=== PATIENT | female | born 1955 | race Caucasian/White ===

== ENCOUNTER 2023-06-14 10:37 | Outpatient (OUT) | payer MEDICARE, SELFPAY ==
--- NOTE | 2023-06-14 10:43 | MM_ITS ---
Patient Name: YAMILET GALAVIZ MR#: [id number] : 1955 Exam Date: 06/14/2023 Ordering Doctor: DR MARTINEZ FISHER RADIOLOGY REPORT PROCEDURE: MM TOMOSYNTHESIS SCREENING BI COMPARISON: MG MAMM SCREEN 3D ROBERT CAD, 04/21/2022. MG MAMM SCREEN 3D ROBERT CAD, 04/20/2021. INDICATIONS: screening Calculator Name NCI Breast Cancer Risk Assessment Tool 5 Year Breast Cancer Risk 3.20% Lifetime Breast Cancer Risk 10.80% Personal Breast Cancer No Personal Ovarian Cancer No Treatments None Family Cancers Mother with breast cancer at age 56; Father with bladder cancer at age 70. LOCATION: [facility] BREAST COMPOSITION: Scattered areas fibroglandular density. FINDINGS: DIAGNOSTIC CATEGORY 2--BENIGN FINDING. NO CHANGE FROM COMPARISON. Scattered benign-appearing nodules are present. Scattered benign-appearing calcifications are present. Scattered benign-appearing lymph nodes are present. RIGHT BREAST: No significant suspicious finding. LEFT BREAST: No significant suspicious finding. RECOMMENDATIONS: ROUTINE MAMMOGRAM AND CLINICAL EVALUATION IN 12 MONTHS. PLEASE NOTE: A NORMAL MAMMOGRAM DOES NOT EXCLUDE THE POSSIBILITY OF BREAST CANCER. A CLINICALLY SUSPICIOUS PALPABLE LUMP SHOULD BE BIOPSIED. Dictated by: Geovanny Fernandez MD on 06/14/2023 at 12:46 Approved by: Geovanny Fernandez MD on 06/14/2023 at 12:47
== END 2023-06-14 10:38 | disposition home or self-care (01) ==
LOC: MAMMO 10:37
PROVIDERS: PCP Nurse Practitioner Family; Visit Provider Nurse Practitioner Family
DX: Z12.31 Encounter for screening mammogram for malignant neoplasm of breast (principal); Z80.3 Family history of malignant neoplasm of breast; Z80.52 Family history of malignant neoplasm of bladder
CPT/HCPCS: 77063; 77067

== ENCOUNTER 2023-08-19 09:18 | Outpatient (OUT) | payer MEDICARE, SELFPAY ==
--- NOTE | 2023-08-19 09:22 | CT_ITS ---
[address] [address] Patient Name: YAMILET GALAVIZ MRN: [id number] date: 1955 Sex: F Assigned Patient Location: CT Current Patient Location: Accession/Order Number: [id number] Exam Date: 08/19/2023 09:28 Report Date: 08/22/2023 09:20 At the request of: JOSE DANIEL Procedure: CT abdomen pelvis wo con EXAMINATION: CT abdomen pelvis wo con HISTORY: Kidney Stone COMPARISON: No relevant comparison available. TECHNIQUE: Axial, Coronal, and Sagittal images were created without IV contrast. Dose reduction techniques were achieved by using automated exposure control and/or adjustment of mA and/or kV according to patient size and/or use of iterative reconstruction technique. FINDINGS: LUNG BASES: No visible pulmonary or pleural disease. LIVER: No enlargement, atrophy, abnormal density, or significant focal lesion. BILIARY: No dilatation or calcification. PANCREAS: No lesion, fluid collection, ductal dilatation, or atrophy. SPLEEN: No enlargement or focal lesion. ADRENALS: No mass or enlargement. KIDNEYS: Nonobstructing right nephrolithiasis. No hydronephrosis BOWEL/MESENTERY: Suture line rectosigmoid colon junction. Mild colonic diverticulosis without evidence of acute diverticulitis. Multiple suture lines along the gastric lumen. Nonobstructive bowel gas pattern. Normal appendix AORTA/VASCULAR: No aortic aneurysm. Mild calcific atherosclerosis RETROPERITONEUM: No mass or adenopathy. LYMPH NODES: No adenopathy. URINARY BLADDER: No visible focal wall thickening, lesion, or calculus. PELVIC ORGANS: Hysterectomy ABDOMINAL WALL: 2 ventral hernias containing mesenteric fat without strangulation BONES: No bony lesion or fracture. OTHER: Negative. CT/CT abdomen pelvis wo con IMPRESSION: Nonobstructing right nephrolithiasis Electronically authenticated by: STEVEN HENDERSON Date: 08/22/2023 09:20
== END 2023-08-19 09:19 | disposition home or self-care (01) ==
LOC: CT 09:18
PROVIDERS: PCP Family Medicine; Visit Provider Urology
DX: N20.0 Calculus of kidney (principal)
CPT/HCPCS: 74176

== ENCOUNTER 2024-01-12 13:53 | Outpatient (RCR) | payer MEDICARE, SELFPAY | END 2024-02-28 14:25 | disposition home or self-care (01) | LOC: PT 13:53 | PROVIDERS: PCP Family Medicine; Visit Provider Orthopaedic Surgery Sports Medicine | DX: M75.122 Complete rotator cuff tear or rupture of left shoulder, not specified as traumatic (principal); M25.511 Pain in right shoulder | CPT/HCPCS: 97110; 97112; 97116; 97140; 97162 ==

== ENCOUNTER 2024-02-29 08:12 | Outpatient (RCR) | payer MEDICARE, SELFPAY | END 2024-04-27 14:29 | disposition home or self-care (01) | LOC: PT 08:12 | PROVIDERS: PCP Family Medicine; Visit Provider Orthopaedic Surgery Sports Medicine | DX: M75.122 Complete rotator cuff tear or rupture of left shoulder, not specified as traumatic (principal); M25.511 Pain in right shoulder; S43.429D Sprain of unspecified rotator cuff capsule, subsequent encounter | CPT/HCPCS: 97110; 97112; 97140 ==

== ENCOUNTER 2024-04-23 11:44 | Emergency (ER) | payer MEDICARE, SELFPAY ==
[2024-04-23 11:53] VITALS: BP 143/69; PULSE 87; TEMP 38; O2SAT 96; BMI 29.3
--- OUTSIDE RECORDS SUMMARY | 2024-04-23 12:09 | XMS_ITS | CCD ---
Author Organization [facility] Inform ion Partnership [facility] Care Team Providers Care Traveling Secretary Name Role Phone JESUS DIA Referring Unavailable YURANDAL MEDINA Primary Care Unavailable JÚNIOR, DR EDUARDO Temple Consulting Unavailable KUNS, DR VALERIE Temple Attending Unavailable KUNS, DR VALERIE Temple Admitting Unavailable KUNS, DR VALERIE Temple Primary Care Unavailable KUNS, DR VALERIE Temple Consulting Unavailable VALERIE ADLER Referring Unavailable KUNS, VALERIE RICARDO Primary Care Unavailable FURLONG, HARSHAL Primary Care Physician Frances Arias Attending Unavailable Frances Arias Admitting Unavailable Frances Arias Attending Unavailable Frances Arias Attending Unavailable Frances Arias Attending Unavailable Frances Arias Admitting Unavailable Furlong DO, Harshal G Primary Care Provider [phone] VALERIE ADLER Attending Unavailable ROMYS, VALERIE RICARDO Referring Unavailable KUNS, VALERIE RICARDO Primary Care Unavailable KUNSVALERIE Referring Unavailable FURLONG, HARSHAL G Primary Care Unavailable FURLONG, HARSHAL G Attending Unavailable FURLONG, HARSHAL G Referring Unavailable FURLONG, HARSHAL G Primary Care Unavailable FURLONG, HARSHAL G Attending Unavailable FURLONG, HARSHAL G Referring Unavailable FURLONG, HARSHAL G Primary Care Unavailable FURLONG, HARSHAL G Attending Unavailable FURLONG, HARSHAL G Referring Unavailable FURLONG, HARSHAL G Primary Care Unavailable Allergies Allergy Classification Reported Allergen(s) Allergy Type Date of Onset Reaction(s) Facility nickel (1 source) nickel Drug Allergy Eruption of skin (disorder) [facility] [place] Penicillins (antibiotic) (1 source) Penicillin; Translations: [penicillin] Drug Allergy Weal (disorder) [facility] (5 sources) Acetaminophen / oxyCODONE; Translations: [OXYCODONE-ACETAM INOPHEN] Drug Allergy 4 Nausea And Vomiting [facility] (10 sources) nickel; Translations: [NICKEL] Drug Allergy 3 Eruption of skin (disorder), Hives [facility] (7 sources) Penicillins; Translations: [PENICILLINS] Propensity to adverse reactions to drug (disorder) 2 Unknown Reaction [facility] (5 sources) Scopolamine; Translations: [SCOPOLAMINE] Drug Allergy 4 Rash [facility] (3 sources) Penicillin; Translations: [penicillin] Drug Allergy Weal (disorder) [facility] Medications Current Medications Medication Drug Class(es) Dates Sig (Normalized) Sig (Original) alendronic acid 70 mg oral tablet (1 source) Bisphosphonate Start: 04-22-2024 take 1 tablet by mouth in the morning alendronate (FOSAMAX) 70 mg tablet Take 1 tablet (70 mg total) by mouth every 7 days. In a.m. with water on empty stomach, nothing else by mouth and remain upright for 30min 12 tablet 3 04/22/2024 Active calcium carbonate 500 mg chewable tablet (1 source) Start: 11-09-2023 calcium carbonate 500 mg Chew Tab 500 mg = 1 tab(s), Chewed, BID Start Date: 11/09/23 Status: Ordered calcium carbonate 1250 mg / cholecalciferol 100 unt / vitamin k1 0.04 mg chewable tablet (3 sources) Vitamin D, Warfarin Reversal Agent, Vitamin K calcium-vitamin D3-vitamin K (CALCIUM FOR WOMEN) 500-100-40 mg-unit-mcg tablet,chewable Chew and swallow daily. Active cholecalciferol 0.125 mg oral capsule (3 sources) Vitamin D take 1 capsule by mouth in the morning cholecalciferol, vitamin D3, (VITAMIN D3) 5,000 units capsule Take 1 capsule (5,000 Units total) by mouth in the morning. Active Ciprofloxacin / Dexamethasone (1 source) Corticosteroid, Quinolone Antimicrobial Start: 11-02-2023 Ciprofloxacin-Dex amethasone Active 4 DROPS OTIC Twice daily 7.5 7 November 02, 2023 12:00am clindamycin 150 mg oral capsule (3 sources) Lincosamide Antibacterial Start: 11-30-2023 clindamycin (CLEOCIN) 150 mg capsule For Dental apt 11/30/2023 Active buoqvsgo-zapw-VT-calc ium &mins (THERAGRAN-M) 9 mg iron-400 mcg tablet (3 sources) jfxvnbvf-eaoy-WO - calcium &mins (THERAGRAN-M) 9 mg iron-400 mcg tablet Take 1 tablet by mouth in the morning. Active Multivitamin preparation (3 sources) Start: 08-03-2023 multivitamin Refill(s) 0 Start Date: 08/03/23 Status: Ordered traZODone hydrochloride 50 mg oral tablet (8 sources) Serotonin Reuptake Inhibitor Start: 07-14-2023 take 1 tablet by mouth once daily traZODone (DESYREL) 50 mg tablet Indications: Adjustment insomnia Take 1 tablet (50 mg total) by mouth nightly. 90 tablet 3 07/14/2023 Active Viactiv Soft Calcium Chews (3 sources) Start: 08-03-2023 Viactiv Soft Calcium Chews Refill(s) 0 Start Date: 08/03/23 Status: Ordered Vitamin D3 (3 sources) Start: 08-03-2023 Vitamin D3 Refills(s) 0 Start Date: 08/03/23 Status: Ordered Completed/Discontinued Medications Medication Drug Class(es) Dates Sig (Normalized) Sig (Original) brompheniramine maleate 0.4 mg/ml / dextromethorphan hydrobromide 2 mg/ml / pseudoephedrine hydrochloride 6 mg/ml oral solution (1 source) alpha-Adrenergic Agonist, Uncompetitive Z-jfeqgd-O-aspartat e Receptor Antagonist, Sigma-1 Agonist Start: 11-10-2023 End: 02-20-2024 take 10 mL by mouth four times daily as needed brompheniramine-p seudoeph-DM 2-30-10 mg/5 mL syrup Take 10 mL by mouth 4 (four) times a day as needed for allergies. 473 mL 11/10/2023 02/20/2024 Discontinued ofloxacin 3 mg/ml ophthalmic solution (2 sources) Quinolone Antimicrobial Start: 08-26-2023 End: 11-02-2023 take 1 drop(s) into the eye(s) four times daily Ofloxacin Discontinued 2 DROPS EYE-BOTH Four times daily 12 04August 26, 2023 12:00am November 02, 2023 12:37pm omeprazole 40 mg delayed release oral capsule (1 source) Proton Pump Inhibitor Start: 11-02-2023 End: 11-02-2023 take 40 mg by mouth once daily Omeprazole Discontinued 40 MG PO Daily November 02, 2023 12:00am November 02, 2023 12:45pm Problems Active Problems Problem Classification Problem Date Documented Date Episodic/Chronic Calculus of urinary tract (15 sources) Kidney stone; Translations: [Calculus of kidney] Onset: 08-03-2023 Episodic Disorders of lipid metabolism (7 sources) Mixed hyperlipidemia; Translations: [Mixed hyperlipidemia] Onset: 11-20-2021 02-20-2024 Chronic Diverticulosis and diverticulitis (3 sources) Diverticulitis; Translations: [Diverticulitis of intestine, part unspecified, without perforation or abscess without bleeding] Onset: 11-20-2021 11-20-2021 Chronic Esophageal disorders (3 sources) Gastroesophageal reflux disease; Translations: [Gastro-esophageal reflux disease without esophagitis] Onset: 06-11-2022 06-11-2022 Chronic Genitourinary symptoms and ill-defined conditions (13 sources) History of urinary tract infection; Translations: [Personal history of urinary (tract) infections] Onset: 08-03-2023 Episodic Inflammation; infection of eye (except that caused by tuberculosis or sexually transmitteddisease) (4 sources) Conjunctivitis of left eye; Translations: [Unspecified conjunctivitis] 08-26-2023 Episodic Nutritional deficiencies (8 sources) Vitamin D deficiency; Translations: [Vitamin D deficiency, unspecified] Onset: 11-28-2017 08-03-2023 Chronic Osteoarthritis (7 sources) Arthritis; Translations: [Osteoarthritis] Onset: 06-11-2022 08-03-2023 Chronic Other screening for suspected conditions (not mental disorders or infectious disease) (7 sources) Encounter for screening mammogram for malignant neoplasm of breast; Translations: [Patient encounter status] Onset: 04-21-2022 Episodic Residual codes; unclassified (3 sources) Obstructive sleep apnea syndrome; Translations: [Obstructive sleep apnea (adult) (pediatric)] Onset: 10-11-2016 11-20-2021 Chronic Residual codes; unclassified (1 source) Family history of malignant neoplasm of breast; Translations: [FAMILY HX MALIG NEOPLASM OF BREAST] Onset: 04-25-2022 Episodic Residual codes; unclassified (1 source) Family history of malignant neoplasm of bladder; Translations: [FAM HX MALIGNANT NEOPLASM BLADDER] Onset: 04-25-2022 Episodic Residual codes; unclassified (1 source) Asymptomatic menopausal state; Translations: [Asymptomatic menopausal state] Onset: 02-20-2024 Episodic Residual codes; unclassified (1 source) Menopause present; Translations: [Asymptomatic menopausal state] 04-16-2024 Episodic Unclassified (1 source) MAW Onset: 09-15-2023 Past or Other Problems Problem Classification Problem Date Documented Da te Episodic/Chronic Anxiety disorders (3 sources) Anxiety; Translations: [Anxiety disorder, unspecified] Onset: 06-11-2022 Resolved: 01-10-2023 01-10-2023 Chronic Diabetes mellitus without complication (3 sources) Impaired fasting glycemia; Translations: [Impaired fasting glucose] Onset: 11-28-2017 Resolved: 07-14-2023 07-14-2023 Episodic Essential hypertension (4 sources) Essential hypertension; Translations: [Essential (primary) hypertension] Onset: 11-20-2021 Resolved: 07-14-2023 07-14-2023 Chronic Joint disorders and dislocations; trauma-related (3 sources) Acute tear of medial meniscus of left knee; Translations: [Other tear of medial meniscus, current injury, left knee, initial encounter] Onset: 01-28-2014 Resolved: 01-10-2023 01-10-2023 Episodic Miscellaneous mental health disorders (1 source) Adjustment insomnia; Translations: [Adjustment insomnia] Onset: 07-14-2023 Episodic Mood disorders (3 sources) Depressive disorder; Translations: [Depression] Onset: 06-11-2022 Resolved: 01-10-2023 01-10-2023 Chronic Mood disorders (3 sources) Mood disorders Onset: 02-20-2024 02-20-2024 Other connective tissue disease (3 sources) Full thickness rotator cuff tear; Translations: [Complete rotator cuff tear or rupture of left shoulder, not specified as traumatic] Onset: 12-14-2023 02-20-2024 Episodic Other gastrointestinal disorders (3 sources) Bariatric surgery status; Translations: [Bariatric surgery status] Onset: 07-14-2023 Episodic Other nutritional; endocrine; and metabolic disorders (3 sources) Morbid obesity; Translations: [Morbid (severe) obesity due to excess calories] Onset: 06-11-2022 Resolved: 07-14-2023 07-14-2023 Chronic Unclassified (3 sources) Onset: 02-23-2022 02-23-2022 Viral infection (3 sources) Disease caused by 2019-nCoV; Translations: [COVID-19] Onset: 11-10-2023 11-10-2023 Episodic Results Test Name Value Interpretation Reference Range Facility DXA Skeletal system Views fo r bone densityOrdered By: Lara Mckeon on 04-16-[address] [facility] Radiology Study observation (narrative) [facility] Ambulatory Visit Summaryon 0 11-09-2023 Ambulatory Visit Summary Ambulatory Visit Summary YAMILET SHERWOOD :1955 Visit Date:11/09/2023 Ambulatory Visit Instructions Your Diagnosis Kidney stone Weak urine stream History of UTI History of Dolly-en-Y gastric bypass Tests Performed US Renal -- Results Pending -- XR Abdomen 1 View -- Results Pending -- Please visit your patient portal for your results or contact your primary care physician. Your Care Team Attending Physician - Frances Arias MD Primary Care Physician - HARSHAL NEVAREZ DO This Is Your Medications List Contact prescribing physician if questions or concerns calcium carbonate (calcium carbonate 500 mg Chew Tab) cholecalciferol (Vitamin D3) multivitamin multivitamin with minerals (Viactiv Soft Calcium Chews) trazodone (traZODONE 50 mg Tab) Procedures Performed Gastric bypass (11/28/2022), Knee (2012), Bowel (2007), Hysterectomy (1996), Colonoscopy. Discharge Vitals Weight 70.5 kg Weight 155.1 lb What to do next You Need to Schedule the Following Appointments Follow Up with Hugo WHITE, Frances Nettles, URL, URO When: Comments: 1 yr w/ MICHELLE & KUB Where: [address] [place] [address]- [phone] Medications What How Much When Instructions Unchanged calcium carbonate (calcium carbonate 500 mg Chew Tab) 1 Tablets Chewed 2 times a day Contact prescribing physician if questions or concerns Unchanged cholecalciferol (Vitamin D3) Contact prescribing physician if questions or concerns Unchanged multivitamin Contact prescribing physician if questions or concerns Unchanged multivitamin with minerals (Viactiv Soft Calcium Chews) Contact prescribing physician if questions or concerns Unchanged trazodone (traZODONE 50 mg Tab) Contact prescribing physician if questions or concerns Allergies Nickel (Rash) penicillin (Hives) Problems Ongoing - Any problem that you are currently receiving treatment for. Arthritis History of Dolly-en-Y gastric bypass History of UTI Kidney stone Ureteral stone Vitamin D deficiency Weak urine stream Patient Survey You may receive a survey via text or e-mail asking about your office visit. Please share your experience with us by completing your survey. We appreciate your feedback and thank you for choosing us for your care. Education Materials Dietary Guidelines to Help Prevent Kidney Stones Kidney stones are deposits of minerals and salts that form inside your kidneys. Your risk of developing kidney stones may be greater depending on your diet, your lifestyle, the medicines you take, and whether you have certain medical conditions. Most people can lower their risks of developing kidney stones by following these dietary guidelines. Your dietitian may give you more specific instructions depending on your overall health and the type of kidney stones you tend to develop. What are tips for following this plan? Reading food labels ? Choose foods with no salt added or low-salt labels. Limit your salt (sodium) intake to less than 1,500 mg a day. ? Choose foods with calcium for each meal and snack. Try to eat about 300 mg of calcium at each meal. Foods that contain 200?500 mg of calcium a serving include: ? 8 oz (237 mL) of milk, calcium-fortifiednon- dairy milk, and calcium-fortifiedfrui t juice. Calcium-fortified means that calcium has been added to these drinks. ? 8 oz (237 mL) of kefir, yogurt, and soy yogurt. ? 4 oz (114 g) of tofu. ? 1 oz (28 g) of cheese. ? 1 cup (150 g) of dried figs. ? 1 cup (91 g) of cooked broccoli. ? One 3 oz (85 g) can of sardines or mackerel. Most people need 1,000?1,500 mg of calcium a day. Talk to your dietitian about how much calcium is recommended for you. Shopping ? Buy plenty of fresh fruits and vegetables. Most people do not need to avoid fruits and vegetables, even if these foods contain nutrients that may contribute to kidney stones. ? When shopping for convenience foods, choose: ? Whole pieces of fruit. ? Pre-made salads with dressing on the side. ? Low-fat fruit and yogurt smoothies. ? Avoid buying frozen meals or prepared deli foods. These can be high in sodium. ? Look for foods with live cultures, such as yogurt and kefir. ? Choose high-fiber grains, such as whole-wheat breads, oat bran, and wheat cereals. Cooking ? Do not add salt to food when cooking. Place a salt shaker on the table and allow each person to add their own salt to taste. ? Use vegetable protein, such as beans, textured vegetable protein (TVP), or tofu, instead of meat in pasta, casseroles, and soups. Meal planning ? Eat less salt, if told by your dietitian. To do this: ? Avoid eating processed or pre-made food. ? Avoid eating fast food. ? Eat less animal protein, including cheese, meat, poultry, or fish, if told by your dietitian. To do this: ? Limit the number of times you have meat, poultry, fish, or cheese e (more content not included)... [facility] Reminderson 11-09-2023 Reminders Reminders From: Stephanie Menendez To: DAVID Arias; Sent: 11/09/2023 12:59:31 EDT Show up: 10/08/2024 12:59:00 EDT Subject: MICHELLE/KUB in 1 year Due Date/Time: 11/08/2024 12:59:00 EDT Reminder Message Pt needs KUB and MICHELLE prior to appt in 1 year (10/2024). Order in encounter from 11/09/23 (dx: kidney stone). Has gone to [facility] previously [facility] Urology Video Visit - Telehe althon 11-09-2023 Urology Video Visit - Telehealth Urology Video Visit - Telehealth Chief Complaint Follow up with litholink and CT HPI Staff 68 year old female patient presents today for a 3 month follow up with kathyk, metabolic workup and CT. Serum labs 08/03/23 [facility] [place]. Previous Dx: kidney stone, ureteral stone, weak urine stream, hx of UTI, Hx of Dolly-en-Y gastric bypass. Dysuria: denies Incomplete bladder emptying: sometimes Hematuria: denies visible blood Frequency: denies Urgency: denies Nocturia: varies but wakes up 2 x a week Stream: denies hesitancy, has a steady stream Leaking: denies Post void dripping: denies Wearing pads/ Depends: denies Urge incontinence: denies Stress incontinence: sneezing really hard, sometimes will leak Incontinence without Sensory Awareness: denies Abdominal pain: denies Flank pain: denies Sexual complaints: _ History of Present Illness Tests reviewed: reviewed Litholink & blood work, CT scan I have reviewed the previous health record information and history for this patient from Dr. Arias. I have reviewed and verified the staff HPI to be accurate for this encounter. Review of Systems ROS - Provider Constitutional: denies weight loss, denies hot flashes. Eyes: denies eye problems. Gastrointestinal: denies nausea, denies vomiting. Cardiovascular: denies chest pain or angina. Integumentary: no dryness Musculoskeletal: denies musculoskeletal symptoms. ENMT: denies otolaryngeal symptoms. Respiratory: no shortness of breath. Heme/Lymph: denies easy bleeding tendency, denies easy bruising tendency. Psychiatric: no confusion, no anxiety. Genitourinary: See HPI. Physical Exam Vitals & Measurements WT: 70.5 kg WT: 155.1 lb General Appearance: alert , no acute distress, well nourished, well developed female. Assessment/Plan Yamilet is a 68 yo female here for kidney stones f/u Renal fxn 04/15/23 - BUN 16, Cr 0.77, eGFR 85 1. Kidney stone (N20.0: Calculus of kidney) Went to ER in [facility] (pt's sons live in [place]) 04/15/23 with dark urine and intermittent right flank pain ongoing x3 days. CT AP w IV con 04/15/23 - Small R renal stone. 3.2 mm stone proximal R ureter with [id number] R hydronephrosis. Had gross hematuria and some pain with urination a few days after ER visit. Also reports she passed sediments 05/2023. Did not catch stone. First episode. [1] CT AP wo con 08/19/23 [facility] - Nonobstructing R nephrolithiasis (no size noted). No hydro. Unable to review image Litholink 08/19/23 - Great volume 3.13 L. Borderline hypocitraturia 498. Serum labs wnl. Ox [address] scan does not show stones in ureter, must have passed it. Size of stone in kidney was not mentioned. Also reviewed metabolic workup results. Discussed appropriate calcium intake with supplements and increasing citrate intake to prevent stone growth/formation. Will continue to monitor stones, prefers 1 yr f/u vs 6 mos. -contact [facility] radiology regarding stone size -Cont water intake, add 1/4 cup lemon/gambell, increase citrate -decrease dietary oxalates -KUB/MICHELLE in 1 year (recall placed) 2. Weak urine stream (R39.12: Poor urinary stream) BBS (12) - not filled out given video visit today. PVR 08/03/23 - 137 mL. Does not feel weak stream is bothersome. Occasional urgency but attributes this to waiting and anxiousness. Declines treatment. -Kegels, timed voids, double void maneuvers -Consider PFPT if sxs become bothersome. 3. History of UTI (Z87.440: Personal history of urinary (tract) infections) Reports she used to get one infection per year. Denies vaginal atrophy symptoms -Consider estrace cream in future if recurrent [2] 4. 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 Denies diarrhea or loose stools. Educated pt on contribution to kidney stones due to malabsorption and metabolic changes from bypass. Takes 1000mg Ca supplements daily (was on 1500 per day previously) with food, increases risk of stone formation with increased Ca. [3] -Cont with Ca as above This visit was conducted via two-way, real-time interactive video communications by Frances Arias MD from my office using [employer]. The patient was located at their home, located at [address] [place] [address] DR ALVAREZ [place] [phone], with no one else in attendance. A signed authorization for treatment has been obtained via our standard authorization packet or by verbal consent by the patient or their legal insurance claim representative. The patient's identity and location in [place] has been verified by our office staff. If it is determined that the patient should be evaluated in the clinic, the patient will be directed to the appropriate clinic or venue. A limited physical exam will be conducted reviewing those areas of the body visible via telecommunications. Total time spent preparing the chart, conducting the encounter with the patient and family, and time spent documenting, reviewing, and ordering tests w (more content not included)... [facility] Comment on above: Result Comment: Elec tronically Signed By: Hugo WHITE, Frances Nettles\.br\Date and Time Signed: 11/09/23 10:47 EDT\.br\Electronically Co-Signed By: Stephanie Menendez\.br\Date and Time Co-Signed: 11/09/23 10:23 EDT [facility] 08-05-2023 Forms [id number]. 00TIFF [facility] PTH Int[place]on 08-05-2023 Parathyrin.intact [Mass/Vol] 21 pg/mL Invalid Interpretation Code 15-65 [facility] Comment on above: Result Comment: Perf ormed at: [facility] [address] [id number] PhD Jamie Mcgrath Performed By: #### 1 [id number] #### [facility] [address] [place] [id number] [place] 08-05-2023 Screens [id number] .00TIFF [facility] Transfer Inon 08-05-2023 Transfer In [id number] .00TIFF [facility]son 08-04-2023 Forms [id number]. 00TIFF [facility] Ambulatory Visit Summaryon 0 08-03-2023 Ambulatory Visit Summary YAMILET SHERWOOD :1955 Visit Date:08/03/2023 Ambulatory Visit Instructions Your Diagnosis Kidney stone Ureteral stone Weak urine stream History of UTI History of Dolly-en-Y gastric bypass Tests Performed CT Abdomen/Pelvis w/o Contrast -- Results Pending -- Please visit your patient portal for your results or contact your primary care physician. Your Care Team Attending Physician - Frances Arias MD Primary Care Physician - HARSHAL NEVAREZ DO This Is Your Medications List Contact prescribing physician if questions or concerns cholecalciferol (Vitamin D3) multivitamin multivitamin with minerals (Viactiv Soft Calcium Chews) trazodone (traZODONE 50 mg Tab) Procedures Performed Gastric bypass (11/28/2022), Knee (2012), Bowel (2007), Hysterectomy (1996), Colonoscopy. Discharge Vitals Heart Rate (Peripheral) 62 Respiratory Rate 16 Blood Pressure 118/76 Height 160 cm Height 63 in Weight 70.5 kg Weight 155.1 lb BMI 27.54 What to do next Scheduled Follow-Up Appointments Tuesday 9:45 AM EDT With: Frances Arias MD Where: [facility] Ambulatory Visit Summary YAMILET SHERWOOD :1955 Visit Date:08/03/2023 Ambulatory Visit Instructions Your Diagnosis Kidney stone Weak urine stream History of UTI History of Dolly-en-Y gastric bypass Tests Performed CT Abdomen/Pelvis w/o Contrast -- Results Pending -- Please visit your patient portal for your results or contact your primary care physician. Your Care Team Attending Physician - Frances Arias MD Primary Care Physician - HARSHAL NEVAREZ DO This Is Your Medications List Contact prescribing physician if questions or concerns cholecalciferol (Vitamin D3) multivitamin multivitamin with minerals (Viactiv Soft Calcium Chews) trazodone (traZODONE 50 mg Tab) Procedures Performed Gastric bypass (11/28/2022), Knee (2012), Bowel (2007), Hysterectomy (1996), Colonoscopy. Discharge Vitals Heart Rate (Peripheral) 62 Respiratory Rate 16 Blood Pressure 118/76 Height 160 cm Height 63 in Weight 70.5 kg Weight 155.1 lb BMI 27.54 What to do next You Need to Schedule the Following Appointments Follow Up with Hugo WHITE, Frances Nettles, URL, URO When: Comments: 2 mos w/ CT scan, [facility] and blood work Where: [address], [place] [address] [phone] Medications What When Instructions Unchanged cholecalciferol (Vitamin D3) Contact prescribing physician if questions or concerns Unchanged multivitamin Contact prescribing physician if questions or concerns Unchanged multivitamin with minerals (Viactiv Soft Calcium Chews) Contact prescribing physician if questions or concerns Unchanged trazodone (traZODONE 50 mg Tab) Contact prescribing physician if questions or concerns Allergies Nickel (Rash) penicillin (Hives) Problems Ongoing - Any problem that you are currently receiving treatment for. Arthritis History of Dolly-en-Y gastric bypass History of UTI Kidney stone Weak urine stream Patient Survey You may receive a survey via text or e-mail asking about your office visit. Please share your experience with us by completing your survey. We appreciate your feedback and thank you for choosing us for your care. Education Materials Kegel Exercises Kegel exercises can help strengthen your pelvic floor muscles. The pelvic floor is a group of muscles that support your rectum, small intestine, and bladder. In females, pelvic floor muscles also help support the uterus. These muscles help you control the flow of urine and stool (feces). Kegel exercises are painless and simple. They do not require any equipment. Your provider may suggest Kegel exercises to: ? Improve bladder and bowel control. ? Improve sexual response. ? Improve weak pelvic floor muscles after surgery to remove the uterus (hysterectomy) or after , in females. ? Improve weak pelvic floor muscles after prostate gland removal or surgery, in males. Kegel exercises involve squeezing your pelvic floor muscles. These are the same muscles you squeeze when you try to stop the flow of urine or keep from passing gas. The exercises can be done while sitting, standing, or lying down, but it is best to vary your position. Ask your health care provider which exercises are safe for you. Do exercises exactly as told by your health care provider and adjust them as directed. Do not begin these exercises until told by your health care provider. Exercises How to do Kegel exercises: 1. Squeeze your pelvic floor muscles tight. You should feel a tight lift in your rectal area. If you are a female, you should also feel a tightness in your vaginal area. Keep your stomach, buttocks, and legs relaxed. 2. Hold the muscles tight for up to 10 seconds. 3. Breathe normally. 4. Relax your muscles for up to 10 seconds. 5. Repeat as told by your health care provider. Repeat this exercise daily as told by your health care provider. Continue to do this exercise for at least 4?6 weeks, or for as long as told by your health care provider. You may be referred to a physical therapist who can help you learn more about how to do Kegel exercises. Depending on your condition, your health care provider may recommend: ? Varying how long you squeeze your muscles. ? Doing several sets of exercises every day. ? Doing exercises for several weeks. ? Making Kegel exercises a part of your regular exercise routine. This information is not intended to replace advice given to you by your health care provider. Make sure you discuss any questions you have with your health care provider. Document Revised: 06/25/2021 Document Reviewed: 06/25/2021 [employer] Patient Education ? 2022 [employer]. Kidney Stones Kidney stones are solid, rock-like deposits that form inside of the kidneys. The kidneys are a pair of organs that make urine. A kidney stone may form in a kidney and move into other parts of the urinary tract, including the tubes that connect the kidn (more content not included)... Normal [facility] BMPon 08-03-2023 Anion gap [Moles/Vol] 11 mmol/L Normal 6-16 [facility] Comment on above: Performed By: #### 2 [id number] #### [facility] [address] [place] [address] Calcium [Mass/Vol] 9.8 mg/dL Normal 8.9-11.1 [facility] Comment on above: Performed By: #### 2 [id number] #### [facility] [address] [place] [address] Chloride [Moles/Vol] 102 mmol/L Normal 101-111 [facility] Comment on above: Performed By: #### 2 [id number] #### [facility] [address] [place] [address] CO2 [Moles/Vol] 30 mmol/L Normal 21-31 [facility] Comment on above: Performed By: #### 2 [id number] #### [facility] [address] [place] [address] Creatinine [Mass/Vol] 0.6 mg/dL Normal 0.5-1.3 [facility] Comment on above: Performed By: #### 2 660375 #### [facility] [address] [place] [address] Glucose [Mass/Vol] 89 mg/dL Normal 55-199 [facility] Comment on above: Performed By: #### 2 [id number] #### [facility] [address] [place] [address] Potassium [Moles/Vol] 4.6 mmol/L Normal 3.5-5.3 [facility] Comment on above: Performed By: #### 2 [id number] #### [facility] [address] [place] [address] Sodium [Moles/Vol] 138 mmol/L Normal 135-145 [facility] Comment on above: Performed By: #### 2 484229 #### [facility] [address] [place] [address] Urea nitrogen [Mass/Vol] 13 mg/dL Normal 5-21 [facility] Comment on above: Performed By: #### 2 [id number] #### [facility] [address] [place] [address] Urea nitrogen/Creatinine [Mass ratio] 22 No Units High 10-20 [facility] Comment on above: Performed By: #### 2 [id number] #### [facility] [address] [place] [address] CHEMISTRYOrdered By: SYSTEM SYSTEM on 08-03-2023 Anion gap [Moles/Vol] 11 mmol/L Normal 6 - 16 mEq/L [facility] Calcium [Mass/Vol] 9.8 mg/dL Normal 8.9 - 11. 1 mg/dL [facility] Chloride [Moles/Vol] 102 mmol/L Normal 101 - 1 11 mmol/L [facility] CO2 [Moles/Vol] 30 mmol/L Normal 21 - 31 mmol/L [facility] Creatinine [Mass/Vol] 0.6 mg/dL Normal 0.5 - 1.3 mg/dL [facility] eGFR 98 mL/min/1.73 m2 Normal >=59mL/min /1 .73 m2 [facility] Glucose [Mass/Vol] 89 mg/dL Normal 55 - 199 mg/dL [facility] Potassium [Moles/Vol] 4.6 mmol/L Normal 3.5 - 5.3 mmol/L [facility] Sodium [Moles/Vol] 138 mmol/L Normal 135 - 145 mmol/L [facility] Urate (U) [Mass/Vol] 3.6 mg/dL Normal 2.2 - 7 .4 mg/dL [facility] Urea nitrogen [Mass/Vol] 13 mg/dL Normal 5 - 21 mg/dL [facility] Urea nitrogen/Creatinine [Mass ratio] 22 mg/mg High 10 - 20 [facility] Patient Educationon 08-03-19 Patient Education Obstetrics and Gynecology Kegel Exercises Kegel exercises can help strengthen your pelvic floor muscles. The pelvic floor is a group of muscles that support your rectum, small intestine, and bladder. In females, pelvic floor muscles also help support the uterus. These muscles help you control the flow of urine and stool (feces). Kegel exercises are painless and simple. They do not require any equipment. Your provider may suggest Kegel exercises to: ? Improve bladder and bowel control. ? Improve sexual response. ? Improve weak pelvic floor muscles after surgery to remove the uterus (hysterectomy) or after , in females. ? Improve weak pelvic floor muscles after prostate gland removal or surgery, in males. Kegel exercises involve squeezing your pelvic floor muscles. These are the same muscles you squeeze when you try to stop the flow of urine or keep from passing gas. The exercises can be done while sitting, standing, or lying down, but it is best to vary your position. Ask your health care provider which exercises are safe for you. Do exercises exactly as told by your health care provider and adjust them as directed. Do not begin these exercises until told by your health care provider. Exercises How to do Kegel exercises: 1. Squeeze your pelvic floor muscles tight. You should feel a tight lift in your rectal area. If you are a female, you should also feel a tightness in your vaginal area. Keep your stomach, buttocks, and legs relaxed. 2. Hold the muscles tight for up to 10 seconds. 3. Breathe normally. 4. Relax your muscles for up to 10 seconds. 5. Repeat as told by your health care provider. Repeat this exercise daily as told by your health care provider. Continue to do this exercise for at least 4?6 weeks, or for as long as told by your health care provider. You may be referred to a physical therapist who can help you learn more about how to do Kegel exercises. Depending on your condition, your health care provider may recommend: ? Varying how long you squeeze your muscles. ? Doing several sets of exercises every day. ? Doing exercises for several weeks. ? Making Kegel exercises a part of your regular exercise routine. This information is not intended to replace advice given to you by your health care provider. Make sure you discuss any questions you have with your health care provider. Document Revised: 06/25/2021 Document Reviewed: 06/25/2021 [employer] Patient Education ? 2022 [employer]. Urology Kidney Stones Kidney stones are solid, rock-like deposits that form inside of the kidneys. The kidneys are a pair of organs that make urine. A kidney stone may form in a kidney and move into other parts of the urinary tract, including the tubes that connect the kidneys to the bladder (ureters), the bladder, and the tube that carries urine out of the body (urethra). As the stone moves through these areas, it can cause intense pain and block the flow of urine. Kidney stones are created when high levels of certain minerals are found in the urine. The stones are usually passed out of the body through urination, but in some cases, medical treatment may be needed to remove them. What are the causes? Kidney stones may be caused by: ? A condition in which certain glands produce too much parathyroid hormone (primary hyperparathyroidism), which causes too much calcium buildup in the blood. ? A buildup of uric acid crystals in the bladder (hyperuricosuria). Uric acid is a chemical that the body produces when you eat certain foods. It usually leaves the body in the urine. ? Narrowing (stricture) of one or both of the ureters. ? A kidney blockage that is present at (congenital obstruction). ? Past surgery on the kidney or the ureters. What increases the risk? The following factors may make you more likely to develop this condition: ? Having had a kidney stone in the past. ? Having a family history of kidney stones. ? Not drinking enough water. ? Eating a diet that is high in protein, salt (sodium), or sugar. ? Being overweight or obese. What are the signs or symptoms? Symptoms of a kidney stone may include: ? Pain in the side of the abdomen, right below the ribs (flank pain). Pain usually spreads (radiates) to the groin. ? Needing to urinate often or urgently. ? Painful urination. ? Blood in the urine (hematuria). ? Nausea. ? Vomiting. ? Fever and chills. How is this diagnosed? This condition may be diagnosed based on: ? Your symptoms and medical history. ? A physical exam. ? Blood tests. ? Urine tests. These may be done before and after the stone passes out of your body through urination. ? Imaging tests, such as a CT scan, abdominal X-ray, or ultrasound. ? A procedure to examine the inside of the bladder (cystoscopy). How is this treated? Treatment for kidney stones depends on the size, location, and makeup of t (more content not included)... 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 Hx of bariatric surgery earlier this year. ER in [facility] 04/15/23. CC: abdominal pain, vomiting, nausea. CT AP w IV con 04/15/23 showed right nephrolithiasis and 3.2 mm stone proximal right ureter with [id number] right hydronephrosis. Renal fxn 04/15/23 - BUN 16, Cr 0.77, eGFR 85 Pt passed grainy sand in May. Did not save. First stone incident. Denies current flank pain. Denies current difficulty voiding. +Fam Hx of Bladder Cancer (Father) History of Present Illness Tests reviewed: reviewed external records: ER notes, CT scan, labs I have reviewed the previous health record information and history for this patient from external providers. I have reviewed and verified the staff HPI to be accurate for this encounter. Review of Systems PHQ Score Initial Depression Screen Score: 0 SCORE ROS - Provider Constitutional: denies weight loss, denies hot flashes. Eyes: denies eye problems. Gastrointestinal: denies nausea, denies vomiting. Cardiovascular: denies chest pain or angina. Integumentary: no dryness Musculoskeletal: denies musculoskeletal symptoms. ENMT: denies otolaryngeal symptoms. Respiratory: no shortness of breath. Heme/Lymph: denies easy bleeding tendency, denies easy bruising tendency. Psychiatric: no confusion, no anxiety. Genitourinary: See HPI. Physical Exam Vitals & Measurements HR: 62(Peripheral) RR: 16 BP: 118/76 HT: 63 in HT: 160 cm WT: 70.5 kg WT: 155.1 lb BMI: 27.54 General Appearance: alert , no acute distress, well nourished, well developed female. Genitourinary: no flank pain. Assessment/Plan Yamilet is a 68 yo female new pt here for kidney stones. Renal fxn 04/15/23 - BUN 16, Cr 0.77, eGFR 85 1. Kidney stone (N20.0: Calculus of kidney) Went to ER in [facility] (pt's sons live in [place]) 04/15/23 with dark urine and intermittent right flank pain ongoing x3 days. CT AP w IV con 04/15/23 - Small R renal stone. 3.2 mm stone proximal R ureter with [id number] R hydronephrosis. Had gross hematuria and some pain with urination a few days after ER visit. Also reports she passed sediments 05/2023. Did not catch stone. First episode. No recent imaging. Reviewed CT scan and labs, renal function preserved, no UTI. Advised pt she likely passed ureteral stone as she has not had pain since May and it is unlikely she would notice the passage given small size of stone. Discussed only way to verify if stones are present is with repeat imaging. Drinks 60 oz per day. 1000 mg Ca with food. Discussed metabolic workup to determine the etiology of kidney stone formation, including genetic predisposition, dietary factors, and different metabolism in patients. Pt is willing to proceed. -F/u in September w/ metabolic stone workup: [facility] and blood work -Complete CT AP wo con @ [facility] -Recommended pt to increase intake to 90 oz per day with lemon for stone prevention. -Limit protein intake, oxalate. Education provided Ordered: 94312 Measure Post Void residual urine and/or bladder capacity by US- non-imaging Basic Metabolic Panel CT Abdomen/Pelvis w/o Contrast E&M of New Patient High 60-74 Min 67336 Lab Specimen Collect 14866 PTH Intact Uric Acid Urnls Dip Stick Auto w/o Microscopy POC 51365 Urnls Dip Stick Auto w/o Microscopy POC 46167 Urnls Dip Stick Auto w/o Microscopy POC 35484 2. Ureteral stone (N20.1: Calculus of ureter) See #1. Risk of scarring/stricture and renal failure if stone is persistent. -Will confirm passage with CT AP 3. Weak urine stream (R39.12: Poor urinary stream) BBS 12. Reports weak stream and does not always feel she empties. Voiding every few hours during the day. UA today negative for blood and infection. PVR 137 cc. Advised pt to lean forward, press on the bladder, and to double void to help empty completely. Educated pt on proper Kegels and importance of relaxing pelvic muscles. Also discussed self-guided PFPT vs formal PFPT w/ a therapist. Pt prefers conservative management and to try PFPT at home. -Kegels, timed voids, double void maneuvers -Try PFPT at home. Educational pamphlets provided. -Consider cysto/UD in future Ordered: 76436 Measure Post Void residual urine and/or bladder capacity by US- non-imaging 26020 Measure Post Void residual urine and/or bladder capacity by US- non-imaging E&M of New Patient High 60-74 Min 97346 Urnls Dip Stick Auto w/o Microscopy POC 01013 Urnls Dip Stick Auto w/o Microscopy POC 26677 4. History of UTI (Z87.440: Personal history of urinary (tract) infections) Reports she used to get one infection per year. Denies vaginal atrophy symptoms -Consider estrace cream in future if recurrent Ordered: 07656 Measure Post Void residual urine and/or bladder capacity by US- non-imaging 91409 Measure Post Void residual urine and/or bladder capacity by US- n (more content not included)... Normal [facility] Comment on above: Result Comment: Elec tronically Signed By: Frances Arias MD\.br\Date and Time Signed: 08/03/23 10:05 EDT\.br\Electronically Co-Signed By: Stephanie Menendez\.br\Date and Time Co-Signed: 08/03/23 09:45 EDT eGFRon 08-03-2023 eGFR 98 mL/min/1.73 m2 Normal >=59 [facility] Comment on above: Order Comment: Order added by Discern Expert. Performed By: #### 1 [id number] #### [facility] [address] [place] [address] Lipid 1996 panelon Cholesterol [Mass/Vol] 176 mg/dL Normal 150-200 [facility] Comment on above: Performed By: #### 2 4331-1 #### [facility] ([id number]) [address], [address] [place] [address] Cholesterol in HDL [Mass/Vol] 70 mg/dL Normal >39 [facility] Comment on above: Result Comment: HDL <40 mg/dL - High Risk HDL > or = 40mg/dL- Desirable HDL >60 mg/dL - Negative Risk Performed By: #### 2 4331-1 #### [facility] ([id number]) [address], [address] [place] [address] Cholesterol in LDL [Mass/Vol] 84 mg/dL Normal <130 [facility] Comment on above: Result Comment: LDL <100 mg/dL - Desirable LDL >160 mg/dL - High Risk Performed By: #### 2 4331-1 #### [facility] ([id number]) [address], [address] [place] [address] Cholesterol in VLDL [Mass/Vol] 22 mg/dL Normal 0-30 [facility] Comment on above: Performed By: #### 2 4331-1 #### [facility] ([id number]) [address] [place] [address] CHOLESTEROL:HDL 2.5 Normal 1.0-5.0 [facility] Comment on above: Performed By: #### 2 4331-1 #### [facility] ([id number]) [address], [address] [place] [address] Triglyceride [Mass/Vol] 108 mg/dL Normal 27-150 [facility] Comment on above: Performed By: #### 2 4331-1 #### [facility] ([id number]) [address], [address] [place] [address] MG MAMM SCREEN 3D ROBERT CADon 04-21-2022 MG MAMM SCREEN 3D ROBERT CAD Patient: YAMILET SOLIS Exam Date: 04/21/2022 : 1955 Gender:F Ordering : DR VALERIE ADLER Admission #: [id number] Family : Order #: [id number] CLICK HERE TO VIEW EXAM RADIOLOGY REPORT PROCEDURE: MAMMOGRAM SCREENING 3D BILATERAL CAD COMPARISON: MG MAMM SCREEN 3D ROBERT CAD, 04/20/2021. MG MAMM SCREEN ROBERT W CAD, 02/27/2020. MG MAMM SCREEN ROBERT W CAD, 02/23/2019. DIGITIZED_MAMMO, 02/15/2007. INDICATIONS: Screening mammography Calculator Name NCI Breast Cancer Risk Assessment Tool 5 Year Breast Cancer Risk 3.20% Lifetime Breast Cancer Risk 11.30% Personal Breast Cancer No Personal Ovarian Cancer No Treatments None Family Cancers Mother with breast cancer at age 56; Father with bladder cancer at age 70. LOCATION: [facility] BREAST COMPOSITION: Scattered areas fibroglandular density. FINDINGS: DIAGNOSTIC CATEGORY 1--NEGATIVE. RIGHT BREAST: No significant suspicious finding. No significant change has occurred. LEFT BREAST: No significant suspicious finding. No significant change has occurred. RECOMMENDATIONS: ROUTINE MAMMOGRAM AND CLINICAL EVALUATION IN 12 MONTHS. PLEASE NOTE: A NORMAL MAMMOGRAM DOES NOT EXCLUDE THE POSSIBILITY OF BREAST CANCER. A CLINICALLY SUSPICIOUS PALPABLE LUMP SHOULD BE BIOPSIED. Dictated by: Eduardo Spaulding M.D. on 04/22/2022 at 13:36 Approved by: Eduardo Spaulding M.D. on 04/22/2022 at 13:52 Normal [facility] METABOLIC PANE [facility] 04-14-2021 Albumin [Mass/Vol] 4.4 g/dL Normal 3.6-5.1 [facility] Comment on above: Performed By: #### 7 600, 22226 #### [facility] [address], [address] [place] [address] Smoke Room Operator: Michael Cox MD Albumin/Globulin [Mass ratio] 1.7 {ratio} Normal 1.0-2.5 [facility] Comment on above: Performed By: #### 7 600, 79778 #### [facility] of [address], [address] [place] [address] Smoke Room Operator: Michael Cox MD ALP [Catalytic activity/Vol] 115 U/L Normal 37-153 [facility] Comment on above: Performed By: #### 7 600, 71857 #### [facility] [place] [address] Smoke Room Operator: Michael Cox MD ALT [Catalytic activity/Vol] 16 U/L Normal 6-29 [facility] Comment on above: Performed By: #### 7 600, 66378 #### [facility] [place] [address] Smoke Room Operator: Michael Cox MD AST [Catalytic activity/Vol] 15 U/L Normal 10-35 [facility] Comment on above: Performed By: #### 7 600, 36198 #### [facility] [address], [address] [place] [address] Smoke Room Operator: Michael Cox MD Bilirubin [Mass/Vol] 0.5 mg/dL Normal 0.2-1.2 [facility] Comment on above: Performed By: #### 7 600, 03123 #### [facility] of [address], [address] [place] [address] Smoke Room Operator: Michael Cox MD BUN/CREATININE RATIO NOT APPLICABLE Normal 6-22 [facility] Comment on above: Performed By: #### 7 600, 03294 #### [facility] of [address], [address] [place] [address] Smoke Room Operator: Michael Cox MD Calcium [Mass/Vol] 9.3 mg/dL Normal 8.6-10.4 [facility] Comment on above: Performed By: #### 7 600, 36617 #### [facility] [place] [address] Smoke Room Operator: Michael Cox MD Chloride [Moles/Vol] 104 mmol/L Normal 98-110 [facility] Comment on above: Performed By: #### 7 600, 75306 #### [facility] [address], [address] [place] [address] Smoke Room Operator: Michael Cox MD CO2 [Moles/Vol] 30 mmol/L Normal 20-32 [facility] Comment on above: Performed By: #### 7 600, 82425 #### [facility] [place] [address] Smoke Room Operator: Michael Cox MD Creatinine [Mass/Vol] 0.71 mg/dL Normal 0.50-0.99 [facility] Comment on above: Result Comment: For patients >49 years of age, the reference limit for Creatinine is approximately 13% higher for people identified as -[place]. Performed By: #### 7 600, 92372 #### [facility] of [place] [address] Smoke Room Operator: Michael Cox MD eGFR NON-AFR. GABONESE 89 mL/min/1.73m2 Normal > OR = 60 [facility] Comment on above: Performed By: #### 7 600, 09624 #### [facility] of [place] [address] Smoke Room Operator: Michael Cox MD GFR/1.73 sq M.predicted among blacks MDRD (S/P/Bld) [Vol rate/Area] 104 mL/min/{1.73_m2} Normal > OR = 60 [facility] Comment on above: Performed By: #### 7 600, 91641 #### [facility] of [address], [address] [place] [address] Smoke Room Operator: Michael Cox MD Globulin (S) [Mass/Vol] 2.6 g/dL Normal 1.9-3.7 [facility] Comment on above: Performed By: #### 7 600, 80463 #### [facility] [place] [address] Smoke Room Operator: Michael Cox MD Glucose [Mass/Vol] 96 mg/dL Normal 65-99 [facility] Comment on above: Result Comment: Fasting reference interval Performed By: #### 7 600, 11112 #### [facility] [place] [address] Smoke Room Operator: Michael Cox MD Potassium [Moles/Vol] 4.3 mmol/L Normal 3.5-5.3 [facility] Comment on above: Performed By: #### 7 600, 72636 #### [facility] [facility] [place] [address] Smoke Room Operator: Michael Cox MD Protein [Mass/Vol] 7.0 g/dL Normal 6.1-8.1 [facility] Comment on above: Performed By: #### 7 600, 63457 #### [facility] [place] [address] Smoke Room Operator: Michael Cox MD Sodium [Moles/Vol] 140 mmol/L Normal 135-146 [facility] Comment on above: Performed By: #### 7 600, 37005 #### [facility] of [address], [address] [place] [address] Smoke Room Operator: Michael Cox MD Urea nitrogen [Mass/Vol] 8 mg/dL Normal 7-25 [facility] Comment on above: Performed By: #### 7 600, 29827 #### [facility] [address], [address] [place] [address] Smoke Room Operator: Michael Cox MD LIPID PANEL, [facility] 03-31 Cholesterol [Mass/Vol] 253 mg/dL High <200 [facility] Comment on above: Order Comment: FASTI NG:YES FASTING: YES Performed By: #### 7 600, 72486 #### [facility] [address], [address] [place] [address] Smoke Room Operator: Michael Cox MD Cholesterol in HDL [Mass/Vol] 63 mg/dL Normal > OR = 50 [facility] Comment on above: Order Comment: FASTI NG:YES FASTING: YES Performed By: #### 7 600, 34118 #### [facility] [address], [address] [place] [address] Smoke Room Operator: Michael Cox MD Cholesterol in LDL [Mass/Vol] 160 mg/dL High [facility] Comment on above: Order Comment: FASTI NG:YES FASTING: YES Result Comment: Refe rence range: <100 Desirable range <100 mg/dL for primary prevention; <70 mg/dL for patients with CHD or diabetic patients with > or = 2 CHD risk factors. LDL-C is now calculated using the Elliott-Manuel calculation, which is a validated novel method providing better accuracy than the Friedewald equation in the estimation of LDL-C. Elliott KC et al. NISH. 2013;310(19): 2650-1437 (http://education.[employer]/faq/MEU384) Performed By: #### 7 600, 44193 #### [facility] [address], [address] [place] [address] Smoke Room Operator: Michael Cox MD Cholesterol.total/Ch olesterol in HDL [Mass ratio] 4.0 {ratio} Normal <5.0 [facility] Comment on above: Order Comment: FASTI NG:YES FASTING: YES Performed By: #### 7 600, 68866 #### [facility] [place] [address] Smoke Room Operator: Michael Cox MD NON HDL CHOLESTEROL 190 mg/dL (calc) High <130 [facility] Comment on above: Order Comment: FASTI NG:YES FASTING: YES Result Comment: For patients with diabetes plus 1 major ASCVD risk factor, treating to a non-HDL-C goal of <100 mg/dL (LDL-C of <70 mg/dL) is considered a therapeutic option. Performed By: #### 7 600, 54792 #### [facility] [place] [address] Smoke Room Operator: Michael Cox MD Triglyceride [Mass/Vol] 155 mg/dL High <150 [facility] Comment on above: Order Comment: FASTI NG:YES FASTING: YES Performed By: #### 7 600, 42735 #### [facility] [place] [address] Smoke Room Operator: Michael Cox MD [facility] 09-25-2020 Albumin [Mass/Vol] 4.5 g/dL Normal 3.6-5.1 [facility] Comment on above: Performed By: #### 7 600, 53374, 92713 #### [facility] [place] [address] Smoke Room Operator: Michael Cox MD Albumin/Globulin [Mass ratio] 1.7 {ratio} Normal 1.0-2.5 [facility] Comment on above: Performed By: #### 7 600, 42010, 55297 #### [facility] [place] [address] Smoke Room Operator: Michael Cox MD ALP [Catalytic activity/Vol] 102 U/L Normal 37-153 [facility] Comment on above: Performed By: #### 7 600, 49784, 41207 #### [facility] [address] [address] Smoke Room Operator: Michael Cox MD ALT [Catalytic activity/Vol] 16 U/L Normal 6-29 [facility] Comment on above: Performed By: #### 7 600, 83770, 72230 #### [facility] [place] [address] Smoke Room Operator: Michael Cox MD AST [Catalytic activity/Vol] 16 U/L Normal 10-35 [facility] Comment on above: Performed By: #### 7 600, 31819, 53056 #### [facility] [place] [address] Smoke Room Operator: Michael Cox MD Bilirubin [Mass/Vol] 0.6 mg/dL Normal 0.2-1.2 [facility] Comment on above: Performed By: #### 7 600, 99282, 30827 #### [facility] [place] [address] Smoke Room Operator: Michael Cox MD BUN/CREATININE RATIO NOT APPLICABLE Normal 6-22 [facility] Comment on above: Performed By: #### 7 600, 11699, 50003 #### [facility] [place] [address] Smoke Room Operator: Michael Cox MD Calcium [Mass/Vol] 10.6 mg/dL High 8.6-10.4 [facility] Comment on above: Performed By: #### 7 600, 82647, 61934 #### [facility] [place] [address] Smoke Room Operator: Michael Cox MD Chloride [Moles/Vol] 107 mmol/L Normal 98-110 [facility] Comment on above: Performed By: #### 7 600, 87000, 58693 #### [facility] [place] [address] Smoke Room Operator: Michael Cox MD CO2 [Moles/Vol] 27 mmol/L Normal 20-32 [facility] Comment on above: Performed By: #### 7 600, 18661, 25265 #### [facility] [address], [address] [place] [address] Smoke Room Operator: Michael Cox MD Creatinine [Mass/Vol] 0.70 mg/dL Normal 0.50-0.99 [facility] Comment on above: Result Comment: For patients >49 years of age, the reference limit for Creatinine is approximately 13% higher for people identified as -[place]. Performed By: #### 7 600, 69784, 63554 #### [facility] [address], [address] [place] [address] Smoke Room Operator: Michael Cox MD eGFR NON-AFR. GABONESE 91 mL/min/1.73m2 Normal > OR = 60 [facility] Comment on above: Performed By: #### 7 600, 37489, 50142 #### [facility] [place] [address] Smoke Room Operator: Michael Cox MD GFR/1.73 sq M.predicted among blacks MDRD (S/P/Bld) [Vol rate/Area] 105 mL/min/{1.73_m2} Normal > OR = 60 [facility] Comment on above: Performed By: #### 7 600, 49676, 32254 #### [facility] [place] [address] Smoke Room Operator: Michael Cox MD Globulin (S) [Mass/Vol] 2.6 g/dL Normal 1.9-3.7 [facility] Comment on above: Performed By: #### 7 600, 37768, 12348 #### [facility] [place] [address] Smoke Room Operator: Michael Cox MD Glucose [Mass/Vol] 112 mg/dL High 65-99 [facility] Comment on above: Result Comment: Fasting reference interval For someone without known diabetes, a glucose value between 100 and 125 mg/dL is consistent with prediabetes and should be confirmed with a follow-up test. Performed By: #### 7 600, 13299, 90441 #### [facility] [address], [address] [place] [address] Smoke Room Operator: Michael Cox MD Potassium [Moles/Vol] 4.4 mmol/L Normal 3.5-5.3 [facility] Comment on above: Performed By: #### 7 600, 22917, 14126 #### [facility] [address], [address] [place] [address] Smoke Room Operator: Michael Cox MD Protein [Mass/Vol] 7.1 g/dL Normal 6.1-8.1 [facility] Comment on above: Performed By: #### 7 600, 44513, 51228 #### [facility] [address], [address] [place] [address] Smoke Room Operator: Michael Cox MD Sodium [Moles/Vol] 141 mmol/L Normal 135-146 [facility] Comment on above: Performed By: #### 7 600, 39144, 06937 #### [facility] [address], [address] [place] [address] Smoke Room Operator: Michael Cox MD Urea nitrogen [Mass/Vol] 11 mg/dL Normal 7-25 [facility] Comment on above: Performed By: #### 7 600, 05153, 63715 #### [facility] [place] [address] Smoke Room Operator: Micahel Cox MD LIPID PANEL, [facility] 07 Cholesterol [Mass/Vol] 284 mg/dL High <200 [facility] Comment on above: Order Comment: FASTI NG:YES FASTING: YES Performed By: #### 7 600, 26453, 84501 #### [facility] [address], [address] [place] [address] Smoke Room Operator: Michael Cox MD Cholesterol in HDL [Mass/Vol] 77 mg/dL Normal > OR = 50 [facility] Comment on above: Order Comment: FASTI NG:YES FASTING: YES Performed By: #### 7 600, 21439, 64952 #### [facility] [place] [address] [place] [address] Smoke Room Operator: Michael Cox MD Cholesterol in LDL [Mass/Vol] 178 mg/dL High [facility] Comment on above: Order Comment: FASTI NG:YES FASTING: YES Result Comment: Refe rence range: <100 Desirable range <100 mg/dL for primary prevention; <70 mg/dL for patients with CHD or diabetic patients with > or = 2 CHD risk factors. LDL-C is now calculated using the Stan calculation, which is a validated novel method providing better accuracy than the Friedewald equation in the estimation of LDL-C. Elliott KC et al. NISH. 2013;310(19): 9640-3975 (http://education.[employer]/faq/DIA179) Performed By: #### 7 600, 86810, 96057 #### [facility] [place] [address] Smoke Room Operator: Michael Cox MD Cholesterol.total/Ch olesterol in HDL [Mass ratio] 3.7 {ratio} Normal <5.0 [facility] Comment on above: Order Comment: FASTI NG:YES FASTING: YES Performed By: #### 7 600, 31036, 61305 #### [facility] [place] [address] Smoke Room Operator: Michael Cox MD NON HDL CHOLESTEROL 207 mg/dL (calc) High <130 [facility] Comment on above: Order Comment: FASTI NG:YES FASTING: YES Result Comment: For patients with diabetes plus 1 major ASCVD risk factor, treating to a non-HDL-C goal of <100 mg/dL (LDL-C of <70 mg/dL) is considered a therapeutic option. Performed By: #### 7 600, 84614, 31182 #### [facility] [address], [address] [place] [address] Smoke Room Operator: Michael Cox MD Triglyceride [Mass/Vol] 143 mg/dL Normal <150 [facility] Comment on above: Order Comment: FASTI NG:YES FASTING: YES Performed By: #### 7 600, 30730, 14886 #### [facility] [address], [address] [place] [address] Smoke Room Operator: Michael Cox MD VITAMIN D,25-OH,TOTAL,IAon 0 09-25-2020 VITAMIN D,25-OH,TOTAL,IA 34 ng/mL Normal 30-100 [facility] Comment on above: Result Comment: Jessica min D Status 25-OH Vitamin D: Deficiency: <20 ng/mL Insufficiency: 20 - 29 ng/mL Optimal: > or = 30 ng/mL For 25-OH Vitamin D testing on patients on D2-supplementation and patients for whom quantitation of D2 and D3 fractions is required, the QuestAssureD(TM) 25-OH VIT D, (D2,D3), LC/MS/MS is recommended: order code 50539 (patients >2yrs). See Note 1 Note 1 For additional information, please refer to http://education.[employer]/faq/IXN974 (This link is being provided for informational/ educational purposes only.) Performed By: #### 7 600, 16150, 31198 #### [facility] [address], [address] [place], [place] [address] Smoke Room Operator: Michael Cox MD [id number] 05-01-2020 SARS-CoV-2 Not Detected Normal [facility] Comment on above: Result Comment: The specimen is NEGATIVE for SARS-CoV-2, the novel coronavirus associated with COVID-19. A negative result does not rule out COVID-19. This test has been authorized by the FDA under an Emergency Use Authorization (EUA) for use by authorized laboratories. Grokr SARS-CoV-2 Reagents for [facility] are designed to detect the virus that causes COVID-19 in patients with signs and symptoms of infection who are suspected of COVID-19. An individual without symptoms of COVID-19 and who is not shedding SARS-CoV-2 virus would expect to have a negative (not detected) result in this assay. Fact sheet for Healthcare Providers: https://www.fda.gov/media/152221/download Fact sheet for Patients: https://www.fda.gov/media/784970/download METHODOLOGY: RT-PCR Performed By: #### C OVID #### [employer] [address] [place], [place] [id number] Instructional Technology Instructor: Eliecer Quezada MD SARS-CoV-2 [facility] Comment on above: Performed By: #### C OVID #### [employer] [address] [place], [place] [id number] Instructional Technology Instructor: Eliecer Quezada MD [id number] 04-30-2020 SARS-CoV-2 Source .NASOPHARYNGEAL SWAB Normal [facility] Comment on above: Performed By: #### C OVID #### [employer] [address] [place], [place] [id number] Instructional Technology Instructor: Eliecer Quezada MD OBSOLETEon 07-28-2019 OBSOLETE Refill (CARDAV) YAMILET SOLIS ([id number]) 1955 F Date Time Provider Department 07/28/19 JOHN DESAI During your visit today, we recorded the following information about you: Nicho Ruby APRN.CNP 08/01/2019 7:38 AM Signed The following approved medication requests have been transmitted electronically. Signed Prescriptions Disp Refills ezetimibe (ZETIA) 10 mg tablet 90 tablet 3 Sig: Take 1 tablet by mouth once daily. CHRIS: No Authorizing Provider: JOHN DESAI Ordering User: NICHO RUBY Refused Prescriptions Disp Refills ezetimibe (ZETIA) 10 mg tablet [Pharmacy Med Name: EZETIMIBE 10 MG TABLET] 30 tablet 2 Sig: TAKE 1 TABLET BY MOUTH EVERY DAY CHRIS: No Refused By: ABDULLAHI WOLFE LPN Reason for Refusal: Records indicate that there is a valid prescription at the pharmacy Nicho Ruby APRN.CNP Allergies As of Date: 07/28/2019 Noted Allergy Reaction PENICILLINS 05/03/2019 7 - Swelling Date Reviewed: 07/04/2019 Reviewed by: Gauri Alaniz RN - Fully Assessed Reason for Visit: Refill Request [94] Visit Diagnosis:Medication refill [Z76.0] Order(s):ezetimibe (ZETIA) 10 mg tabletTake 1 tablet by mouth once daily.Disp: 90 tabletRfl: 3 Prescriptions as of 07/28/2019 Sig: EZETIMIBE 10 MG TABLET Take 1 tablet by mouth once d* LISINOPRIL 5 MG TABLET Take 1 tablet by mouth once d* HYDROCHLOROTHIAZIDE 12.5 MG C* Take 12.5 mg by mouth once da* WELLBUTRIN ORAL Take 100 mg by mouth twice da* VITAMIN D3 ORAL Take 5,000 Units by mouth onc* FLAXSEED OIL ORAL Take 1,300 mg by mouth once d* GLUCOSAMINE COMPLEX ORAL Take 2 tablets by mouth once * TURMERIC ROOT EXTRACT ORAL Take 2,000 mg by mouth once d* MELATONIN 5 MG CAPSULE Take 5 mg by mouth daily at b* COROMEGA ORAL Take 1 tablet by mouth once d* Problem List As Of Date: 07/28/2019 (None) Prescriptions ordered this encounter Disp Refills Start End EZETIMIBE 10 MG TABLET 90 t* 3 08/01/2019 Route: ORAL Sig: Take 1 tablet by mouth once daily. Medications Discontinued During This Encounter ezetimibe (ZETIA) 10 mg tablet 30 t* 2 07/04/2019 08/01/2019 Route: ORAL Sig: Take 1 tablet by mouth once daily. Disc: Reason for discontinue is not on file. Encounter Status:Closed by NICHO RUBY on 08/01/19 Normal [facility] CARDIAC PERF STRESS/PHARM on 07-04-2019 NM CARDIAC PERF STRESS/PHARM * * *Final Report* * * DATE OF EXAM: Jul 04 2019 12:12PM AFN 0006 - NM CARDIAC PERF STRESS/PHARM / PROCEDURE REASON: multiple diagnoses * * * * Physician Interpretation * * * * PATIENT: Name: YAMILET SOLIS Age: 63 years Gender: F CONCLUSIONS: 1. SPECT Perfusion Study: Normal. 2. There is no scintigraphic evidence for inducible ischemia. 3. No evidence of scarred myocardium. 4. Functional capacity N/A (pharmacological). 5. Left ventricle is normal in size. The left ventricle systolic function is normal. 6. Right ventricle is normal in size. 7. This is a low risk scan. Gated Stress FBP LVEF % 73 Prior Study Comparison No prior nuclear cardiology exam available for comparison. Nuclear Med Report:1-Day Tc-Tetrofosmin Gated SPECT Myocardial Perfusion with Regadenoson Stress: Myocardial perfusion imaging was performed at rest 30 minutes following the IV injection of Tc-99m tetrofosmin. The patient received 0.4 mg of regadenoson, via rapid IV push, immediately followed by Tc-99m tetrofosmin IV. Gated post stress tomographic imaging was performed 30 to 60 minutes later. See administered doses below. [facility] Date of service: 07/04/2019 7:18:49 AM Ordering Physician: john desai Requesting Physician: Indication: Cp, rbbb, precordial pain. Interpreting physician: Carlo Villavicencio MD Patient History: History of hypertension and dyslipidemia. Medications currently taking are ACEI, diuretic and anti-depressants. Height: 160.02 cm BSA: 2.11 m? Weight: 99.79 kg BMI: 39.0 kg/m? Imaging Protocol Limitation Reason Breast attenuation. Exam Type: Rest Stress Radiopharm: Tc-99m Tetrofosmin Tc-99m Tetrofosmin Dosage(mCi): 17.4 52.9 Stress Agent: Regadenoson 0.4mg Supply provided from [facility] Resting Heart Rate: 69 bpm Resting Blood Press: 132/80 mmHg Image Quality The overall study imaging quality was deemed to be good. The following technical issues were noted: Breast attenuation. FINDINGS: Left Ventricle Wall Motion: Stress IR:3D - All segments are normal. Rest IR:3D - Gated Stress FBP - Reversibility - Stress IR:3D Stress IR:3D Gated Stress FBP LVEF: 73 % ED Volume: 66 ml ES Volume: 18 ml TID: 0.96 Perfusion Findings Stress IR:3D - Summed Score=0 All segments demonstrate normal perfusion. Rest IR:3D - Summed Score=0 All segments demonstrate normal perfusion. Stress IR:3D Rest IR:3D Summed Score=0 Summed Score=0 LEFT VENTRICLE The left ventricle is normal in size. Left ventricular systolic function is normal. Right Ventricle The right ventricle is normal in size. Stress Test Findings: There is no scintigraphic evidence for inducible ischemia. There is no evidence of scarring. The stress test was terminated due to the following: End of Protocol. Peak HR 90 bpm. (58 % MPHR) Peak BP 128 mmHg/72 mmHg Patient experienced no symptoms during stress. Stress ECG normal ST segment response and normal sinus rhythm. Stress complications: none. Final Lumber Sorter Machine: FLORECITA Transcribe Date/Time: Jul 04 2019 7:18A Dictated by : CARLO VILLAVICENCIO MD This examination was interpreted and the report reviewed and electronically signed by: CARLO VILLAVICENCIO MD on Jul 04 2019 12:58PM EST [id number] Normal [facility] PROGRESSon 07-04-2019 PROGRESS HNO ID: [id number] Author: John Desai Service: ? Author Type: Physician Type: Progress Notes Filed: 07/04/2019 2:48 PM Note Text: Patient is a 63 year old female here to see Cardiology for 2 month follow up results fro today's Stress test and Echo The patient has no cardiac symptoms at this time. (Import from EMR History) No past medical history on file. (Import from EMR History) No past surgical history on file. (Import from EMR History) Social History Tobacco Use - Smoking status: Never Smoker - Smokeless tobacco: Never Used Substance Use Topics - Alcohol use: Not on file Comment: rare usage - Drug use: Never Patient caffeine history: 2 c/day of coffee and 3 1L bottles (s)/day of soft drinks Do you need any refills today?: Yes, Lisinopril Hydrochlorothiazide 12.5 mg capsule Take 12.5 mg by mouth once daily. bupropion HCl (WELLBUTRIN ORAL) Take 100 mg by mouth twice daily. cholecalciferol, vitamin D3, (VITAMIN D3 ORAL) Take 5,000 Units by mouth once daily. FLAXSEED OIL ORAL Take 1,300 mg by mouth once daily. TURMERIC ROOT EXTRACT ORAL Take 2,000 mg by mouth once daily. Melatonin 5 mg cap Take 5 mg by mouth daily at bedtime. fish oil/omega-3/vit C/vit E (COROMEGA ORAL) Take 1 tablet by mouth once daily. glucosamine HCl and sulfate (GLUCOSAMINE COMPLEX ORAL) Take 2 tablets by mouth once daily. [DISCONTINUED] lisinopril (PRINIVIL) 5 mg tablet Take 1 tablet by mouth once daily. REVIEW OF SYSTEMS Detailed 10 system review was performed, including general, dermatologic, ENT, cardiovascular, respiratory, endocrine, gastrointestinal, neurologic, ophthalmologic, musculoskeletal, and psychiatric. Pertinent information, positive and/or negative, were listed above in the narrative, otherwise non contributory. Past Medical, Family and Social history reviewed; unchanged from initial consult note. Yamilet Solis is a 63 year old female who was last seen on 05/03/19. HPI Yamilet Solis is a 63 year old female who presents today because of chest pain. Yamilet has hx of dyslipidemia, with intolerance to multiple statins and on none at the present, borderline glycemia but got better with 25 lb weight loss. She has been experiencing chest pain, localized above her left breast, about 1.5 inc in diameter. the pain is constant when present, and intensity may vary from a mild 2/10 to the strong 4/10 in intensity. Stress brings it up. the pain may occur while she is charting generally mild, and may be more intense when busy. She has not focused on what may make the pain improve, or slow down. The chest pain is associate with palpitations, but not with the pain. she has noted high BP when at work, and no hx of essential HTN. She never smoked, but both parents smoked. Her mother of cancer and her father of pancreatitis neither of them had heart problems. She has had no more problems with lower extremity edema since she was started on HCTZ. She was diagnosed with MEGAN in 2017 and has been using the CPAP since September 2016 with significant improvement in her energy level, and quality of sleep. She has not hx of syncope. She reports of benign positional vertigo years ago. THIS ENCOUNTER WAS COMPLETED BY PHONE DIRECTED BY THE RECOMMENDATION FOR THE COVID-19 OUTBREAK. SUBJECTIVE: Patient was called to follow up on her test results. She completed the pharmacologic stress test and the echo today Ht 161.3 cm (5' 3.5 ) Wt 100.8 kg (222 lb 3.2 oz) BMI 38.74 kg/m? NO PHYSICAL EXAM FOR THIS TYPE OF ENCOUNTER. INVESTIGATIONS: ECHO done today CONCLUSIONS: - Exam indication: Chest Pain - The left ventricle is normal in size. Left ventricular systolic function is normal. EF = 73 ? 5% (2D biplane) Normal left ventricular diastolic function. - The right ventricle is normal in size. Right ventricular systolic function is normal. - There are no significant valvular abnormalities. - Estimated right ventricular systolic pressure is likely underestimated due to a weak or incomplete tricuspid regurgitation signal and is, at least, 22 mmHg consistent with normal pulmonary artery pressures. Estimated right atrial pressure ?is 3 mmHg based on IVC assessment. - The patient has not had a prior echocardiographic exam for comparison. ? SS done today CONCLUSIONS: ?1. SPECT Perfusion Study: Normal. ?2. There is no scintigraphic evidence for inducible ischemia. ?3. No evidence of scarred myocardium. ?4. Functional capacity N/A (pharmacological). ?5. Left ventricle is normal in size. The left ventricle systolic function is normal. ?6. Right ventricle is normal in size. ?7. This is a low risk scan. ? Gated Stress FBP ?LVEF % 73 STRESS EKG INDICATIONS/SYMPTOMS: ? PRECORDIAL CHEST PAIN, ABNORMAL RESTING ECG. MEDICAL HISTORY/COMORBIDITIES : ? HYPERTENSION, HYPERCHOLESTEROLEMIA. OBESITY. PROCEDURES: ? NONE. MEDICATIONS(LAST DOSE): LISINOPRIL(1D), HYDROCHLOROTHIAZIDE(1 D), WELLBUTRIN(1D). RESTING ECG: NORMAL SINUS RHYTHM, COMPLETE RBBB. OBSERVATION: ? 1. THE TEST WAS TERMINATED DUE TO END OF PROTOCOL. ? 4. NORMAL BLOOD PRESSURE RESPONSE TO STRESS. ? 5. NORMAL ST SEGMENT RESPONSE TO STRESS. ? 7. ANGINA WAS NOT PROVOKED BY STRESS. ? 8. NO ARRHYTHMIAS WERE NOTED AT REST OR DURING STRESS. ? 9. NO PRIOR TEST FOR COMPARISON AT [facility]. CONCLUSION: NORMAL. ADDITIONAL COMMENTS: ? SEE NUCLEAR SCAN. EKG 05/03/19 Diagnosis: NORMAL SINUS RHYTHM COMPLETE RIGHT BUNDLE BRANCH BLOCK ABNORMAL ECG Confirmed by PIPER LEONG MD ([id number]) on 05/08/2019 10:25:14 PM ? Ventricular Rate : 80 ?BPM Atrial Rate : 80 ?BPM P-R Interval : 156 ?ms QRS Duration : 132 ?ms Q-T Interval : 420 ?ms QTC Calculation(Bazett) : 484 ?ms P [place] : 27 ?degrees R [place] : 54 ?degrees T [place] : 0 ?degrees LAB no labs available She has her lab work done locally ASSESSMENT AND PLAN Yamilet Solis is a 63 yr old lady with hx of uncontrolled dyslipidemia and intolerance to statin, obesity and borderline glycemia presents for evaluation of atypical chest pain. ? 1. Atypical chest pain occurring with stress, mostly emotional she has no family hx of CAD and she never smoked, second hand smoking as child Her pharm stress test is negative for ischemia with appropriate hemodynamic response continue primary prevention ? 2. Baseline systolic murmur and RBBB on today EKG no previous EKG for comparison The echocardiogram shows normal ventricular and valvular function with normal RVSP, although personal review there is concern for a prominent RV in parasternal view, the RV measures normal in the study. ? 3. Dyslipidemia, consider Zetia as alternative to statin, however she is following a keto diet and diarrhea may be increased by Zetia we will repeat lipid profile to assess for changes only with diet she would benefit from regular exercise and weight loss. Struggling to lose weight and keep it off. ? 4. Hypertension, recorded only at work. suggest to start low dose lisinopril during work days. she was started on low dose lisinopril (5 mg) that she is taking when going to work, when her BP is at peak she reports very good control with that strategy with systolic BP between 106-138 mmHg and diastolic BP between 66 and 80 mmHg. we will continue with the same therapy, she was advised to check her BP also at home on a regular basis. ? 5. dyslipidemia with intolerance to statin. She was suggested to start Zetia 10 mg daily she will have lipid profile in 4 to 6 weeks as scheduled with her primary care physician. RTC as needed. Normal [facility] PROGRESS HNO ID: [id number] Author: Diana Webber (Tech) Service: ? Author Type: Roofing Sales Representative Type: Progress Notes Filed: 07/04/2019 10:43 AM Note Text: RADIOLOGY SERVICE PROGRESS NOTE SERVICE DATE: 07/04/2019 SERVICE TIME: 9:36 AM PATIENT IDENTITY VERIFICATION COMPLETED USING TWO (2) STANDARD IDENTIFIERS: Name and Date of confirmed by patient verbally FALL SCREENING: Has the patient had 2 falls in the last year or 1 fall with injury or currently using an Ambulatory Assistive Device (Walker, Cane, Wheelchair, Crutches, etc.)? No PATIENT GENDER DATA: .female ALLERGIES: Reviewed and unchanged MEDICATIONS REVIEWED: Yes PATIENT RELEVANT IMPLANT DATA REVIEWED: Not Applicable CREATININE: No results found for: CREAT, EGFROTH, EGFRAA P.O.C.T. RESULTS: POC done: Yes, See Lab Tab July 04, [address] PERFORMED: No IV SITE: Ambulatory: A peripheral IV was started in the Right hand with a Angio cath: 22 gauge. POST EXAM PIV STATUS: Discontinued PROCEDURE TYPE: CA Stress: 17.4mCi [id number] was administered IV for Rest Imaging at 09 ;44 by Diana Webber. 52.9 mCi Em60o-Lutrrak was administered IV for Stress Imaging at 1043 by Usha Weber . ADMINISTRATION TIME: PATIENT DISCHARGED TO: Ambulatory patient, left NM department area. A Diagnostic radioactive procedure has taken place, with no further precautions necessary other than routine body substance precautions. More information regarding radiation safety can be found using this link: [email or web address] SIGNATURE: Diana Webber PATIENT NAME: Yamilet Solis DATE: July 04, 2019 TIME: 9:36 AM PAGER/CONTACT #: Lynda [facility] María Elena 07-03-2019 CALVIN Telephone (RAZ) YAMILET SOLIS ([id number]) 1955 F Date Time Provider Department 07/03/19 JOHN DESAI During your visit today, we recorded the following information about you: Gauri Alaniz RN 07/03/2019 9:18 AM Signed Patient was called today regarding appointment on 07/04/19. Left message on options for the appointment: Phone encounter Virtual visit with [facility]. Office number provided. Awaiting patient's response. Anurag Vences 07/03/2019 12:05 PM Signed Pt wants to be called like a normal phone call at CALL [phone] for the appt. Please advise. Allergies As of Date: 07/03/2019 Noted Allergy Reaction PENICILLINS 05/03/2019 7 - Swelling Date Reviewed: 05/03/2019 Reviewed by: Gauri Alaniz RN - Fully Assessed Reason for Visit: Appointment [186] Prescriptions as of 07/03/2019 Sig: HYDROCHLOROTHIAZIDE 12.5 MG C* Take 12.5 mg by mouth once da* WELLBUTRIN ORAL Take 100 mg by mouth twice da* VITAMIN D3 ORAL Take 5,000 Units by mouth onc* FLAXSEED OIL ORAL Take 1,300 mg by mouth once d* GLUCOSAMINE COMPLEX ORAL Take 2 tablets by mouth once * TURMERIC ROOT EXTRACT ORAL Take 2,000 mg by mouth once d* MELATONIN 5 MG CAPSULE Take 5 mg by mouth daily at b* COROMEGA ORAL Take 1 tablet by mouth once d* LISINOPRIL 5 MG TABLET Take 1 tablet by mouth once d* Problem List As Of Date: 07/03/2019 (None) Encounter Status:Closed by GAURI ALANIZ RN on 07/03/19 Normal [facility] María Elena 06-21-2019 CESARN Telephone (RAZ) YAMILET SOLIS ([id number]) 1955 F Date Time Provider Department 06/21/19 JOHN DESAI During your visit today, we recorded the following information about you: Felipa Llanos Pss 06/21/2019 2:20 PM Signed Rn Case Mgr from the office of Dr. Valerie Adler called to request that th OV note dated 05/03/19 be faxed to [phone] Sudhir Dolan RN 06/21/2019 2:49 PM Signed Printed and faxed with confirmation. Allergies As of Date: 06/21/2019 Noted Allergy Reaction PENICILLINS 05/03/2019 7 - Swelling Date Reviewed: 05/03/2019 Reviewed by: Gauri Alaniz RN - Fully Assessed Reason for Visit: Request for Information [Other] Prescriptions as of 06/21/2019 Sig: HYDROCHLOROTHIAZIDE 12.5 MG C* Take 12.5 mg by mouth once da* WELLBUTRIN ORAL Take 100 mg by mouth twice da* VITAMIN D3 ORAL Take 5,000 Units by mouth onc* FLAXSEED OIL ORAL Take 1,300 mg by mouth once d* GLUCOSAMINE COMPLEX ORAL Take 2 tablets by mouth once * TURMERIC ROOT EXTRACT ORAL Take 2,000 mg by mouth once d* MELATONIN 5 MG CAPSULE Take 5 mg by mouth daily at b* COROMEGA ORAL Take 1 tablet by mouth once d* LISINOPRIL 5 MG TABLET Take 1 tablet by mouth once d* Problem List As Of Date: 06/21/2019 (None) Encounter Status:Closed by SUDHIR DOLAN RN on 06/21/19 [facility] CNOVon 05-03-2019 CNOV Office Visit (CARDAV ) YAMILET SOLIS ([id number]) 1955 F Date Time Provider Department 05/03/19 3:00 PM JOHN DESAI During your visit today, we recorded the following information about you: Pulse Blood pressure Weight Height 80/minute 130/70 99.9 kg 1.6 m John Dseai MD 05/03/2019 8:41 PM Signed Patient is a 63 year old female here to see Cardiology for Consult from OS physician from chest discomfort.. The patient has no cardiac symptoms at this time. Patient has been experiencing left sided chest pressure. Patient has also been experiencing SOB Moderate physical exertion. (Import from EMR History) No past medical history on file. (Import from EMR History) No past surgical history on file. (Import from EMR History) Social History Tobacco Use - Smoking status: Never Smoker - Smokeless tobacco: Never Used Substance Use Topics - Alcohol use: Not on file Comment: rare usage - Drug use: Never Patient caffeine history: 2 c/day of coffee and 3-4 1 liter btl(s)/day of soft drinks Do you need any refills today?: No Hydrochlorothiazide 12.5 mg capsule Take 12.5 mg by mouth once daily. bupropion HCl (WELLBUTRIN ORAL) Take 100 mg by mouth twice daily. cholecalciferol, vitamin D3, (VITAMIN D3 ORAL) Take 5,000 Units by mouth once daily. FLAXSEED OIL ORAL Take 1,300 mg by mouth once daily. glucosamine HCl and sulfate (GLUCOSAMINE COMPLEX ORAL) Take 2 tablets by mouth once daily. TURMERIC ROOT EXTRACT ORAL Take 2,000 mg by mouth once daily. Melatonin 5 mg cap Take 5 mg by mouth daily at bedtime. fish oil/omega-3/vit C/vit E (COROMEGA ORAL) Take 1 tablet by mouth once daily. REVIEW OF SYSTEMS Detailed 10 system review was performed, including general, dermatologic, ENT, cardiovascular, respiratory, endocrine, gastrointestinal, neurologic, ophthalmologic, musculoskeletal, and psychiatric. Pertinent information, positive and/or negative, were listed above in the narrative, otherwise non contributory. Past Medical, Family and Social history reviewed; unchanged from initial consult note. ANDERSON Solis is a 63 year old female who presents today because of chest pain. Yamilet has hx of dyslipidemia, with intolerance to multiple statins and on none at the present, borderline glycemia but got better with 25 lb weight loss. She has been experiencing chest pain, localized above her left breast, about 1.5 inc in diameter. the pain is constant when present, and intensity may vary from a mild 2/10 to the strong 4/10 in intensity. Stress brings it up. the pain may occur while she is charting generally mild, and may be more intense when busy. She has not focused on what may make the pain improve, or slow down. The chest pain is associate with palpitations, but not with the pain. she has noted high BP when at work, and no hx of essential HTN. She never smoked, but both parents smoked. Her mother of cancer and her father of pancreatitis neither of them had heart problems. She has had no more problems with lower extremity edema since she was started on HCTZ. She was diagnosed with MEGAN in 2017 and has been using the CPAP since September 2016 with significant improvement in her energy level, and quality of sleep. She has not hx of syncope. She reports of benign positional vertigo years ago. BP 130/70 Pulse 80 Ht 160 cm (5' 3 ) Wt 99.9 kg (220 lb 3.2 oz) BMI 39.01 kg/m? General appearance: Well nourished and developed in no acute distress. Skin: Dry, warm and well perfused Head: NC/AT Eyes: PERRLA, EOMI, anicteric sclerae Neck: Supple. No JVD, normal HJR. Thyroid symmetric. Normal carotid upstroke without bruits Chest: Symmetric expansion. Breast exam deferred Lungs: Good air entry. Clear to auscultation Heart: Regular rhythm. PMI not displaced. S1 and S2 normal, physiologically split S2. No S3 or S4. Systolic murmur at the base radiated . Diastolic murmur Abdomen: BS positive. Globose, treatable, non tender. No organomegaly. Cisneros's sign negative. : menopausal/deferred Extremities: No deformities. No edema. Musculoskeletal: full ROM Peripheral pulses: PT + bilaterally; DP + bilaterally. Neuro: Grossly intact INVESTIGATIONS EKG done today NSR @ 80 bpm. RBBB. LAB EXTERNAL LAB REVIEWED WITH PATIENT ASSESSMENT AND PLAN 63 yr old lady with hx of uncontrolled dyslipidemia and intolerance to statin, obesity and borderline glycemia presents for evaluation of atypical chest pain. 1. Atypical chest pain occurring with stress, mostly emotional she has no family hx of CAD and she never smoked, second hand smoking as child we are going to rule out stress induced ischemia and arrhythmia with pharm nuclear stress test, Knee pain does not allow her to walk 2. Baseline systolic murmur and RBBB on today EKG no previous EKG for comparison assess ventricular and valvular function with echo 3. Dyslipidemia, consider Zetia as alternative to statin, however she is following a keto diet and diarrhea may be increased by Zetia we will repeat lipid profile to assess for changes only with diet she would benefit from regular exercise and weight loss. Struggling to lose weight and keep it off. 4. Hypertension, recorded only at work. suggest to start low dose lisinopril during work days. she will bring the BP log at follow up RTC in about 7 weeks with stress test and echo Referring Provider: SELF [200] Allergies As of Date: 05/03/2019 Noted Allergy Reaction PENICILLINS 05/03/2019 7 - Swelling Date Reviewed: 05/03/2019 Reviewed by: Gauri Alaniz RN - Fully Assessed Reason for Visit: Consult [173] Cmt: external physician Primary Visit Diagnosis:Precordial pain [R07.2] Other Visit Diagnoses:RBBB (right bundle branch block) [I45.10] Mixed hyperlipidemia [E78.2] Mild HTN [I10] Order(s):ECG COMPLETE [ECG01] Order #: [id number] FUTURE lisinopril (PRINIVIL) 5 mg tabletTake 1 tablet by mouth once daily.Disp: 30 tabletRfl: 1 ECHO [247990] Order #: [id number]: 1 FUTURE PHARMACOLOGIC STRESS W/NUC IMAGING [2563600] Order #: [id number]: 1 NM CARDIAC PERF STRESS/PHARM [3660900] Order #: [id number] FUTURE Prescriptions as of 05/03/2019 Sig: HYDROCHLOROTHIAZIDE 12.5 MG C* Take 12.5 mg by mouth once da* WELLBUTRIN ORAL Take 100 mg by mouth twice da* VITAMIN D3 ORAL Take 5,000 Units by mouth onc* FLAXSEED OIL ORAL Take 1,300 mg by mouth once d* GLUCOSAMINE COMPLEX ORAL Take 2 tablets by mouth once * TURMERIC ROOT EXTRACT ORAL Take 2,000 mg by mouth once d* MELATONIN 5 MG CAPSULE Take 5 mg by mouth daily at b* COROMEGA ORAL Take 1 tablet by mouth once d* LISINOPRIL 5 MG TABLET Take 1 tablet by mouth once d* Medication notes this encounter HYDROCHLOROTHIAZIDE 12.5 MG CAPSULE >> Gauri Alaniz RN 05/03/2019 3:39 PM >> GAURI ALANIZ RN [facility] May 03, 2019 3:39 PM Patient takes daily >> Gauri Alaniz RN 05/03/2019 3:39 PM >> GAURI ALANIZ RN [facility] May 03, 2019 3:39 PM currently taking WELLBUTRIN ORAL >> Gauri Alaniz RN 05/03/2019 3:39 PM >> GAURI ALANIZ RN [facility] May 03, 2019 3:39 PM Patient take 1 tablet daily Problem List As Of Date: 05/03/2019 (None) Prescriptions ordered this encounter Disp Refills Start End LISINOPRIL 5 MG TABLET 30 t* 1 05/03/2019 Class: Print RX Route: ORAL Sig: Take 1 tablet by mouth once daily. Disposition: Return in about 7 weeks (around 06/21/2019). Follow-up and Disposition History Recorded Encounter Status:Closed by JOHN DESAI MD on 05/03/19 [facility] EKG1on 05-03-2019 EKG1 NAME : YAMILET SOLIS PID : [id number] : 1955 Gender : Female Race : ORD : Procedure Date : May 03 2019 15:29:25 Edit Date : May 08 2019 22:25:14 Diagnosis:NORMAL SINUS RHYTHM COMPLETE RIGHT BUNDLE BRANCH BLOCK ABNORMAL ECG Confirmed by PIPER LEONG MD ([id number]) on 05/08/2019 10:25:14 PM Ventricular Rate : 80 BPM Atrial Rate : 80 BPM P-R Interval : 156 ms QRS Duration : 132 ms Q-T Interval : 420 ms QTC Calculation(Bazett) : 484 ms P [place] : 27 degrees R [place] : 54 degrees T [place] : 0 degrees Test Reason : Location : 192 : AVCRD Overread By : PIPER LEONG MD Edited By : PIPER LEONG MD Referred By : , Acquired by : , [facility] PROGRESSon 05-03-2019 PROGRESS HNO ID: [id number] Author: John Desai Service: ? Author Type: Physician Type: Progress Notes Filed: 05/03/2019 8:41 PM Note Text: Patient is a 63 year old female here to see Cardiology for Consult from OS physician from chest discomfort.. The patient has no cardiac symptoms at this time. Patient has been experiencing left sided chest pressure. Patient has also been experiencing SOB Moderate physical exertion. (Import from EMR History) No past medical history on file. (Import from EMR History) No past surgical history on file. (Import from EMR History) Social History Tobacco Use - Smoking status: Never Smoker - Smokeless tobacco: Never Used Substance Use Topics - Alcohol use: Not on file Comment: rare usage - Drug use: Never Patient caffeine history: 2 c/day of coffee and 3-4 1 liter btl(s)/day of soft drinks Do you need any refills today?: No Hydrochlorothiazide 12.5 mg capsule Take 12.5 mg by mouth once daily. bupropion HCl (WELLBUTRIN ORAL) Take 100 mg by mouth twice daily. cholecalciferol, vitamin D3, (VITAMIN D3 ORAL) Take 5,000 Units by mouth once daily. FLAXSEED OIL ORAL Take 1,300 mg by mouth once daily. glucosamine HCl and sulfate (GLUCOSAMINE COMPLEX ORAL) Take 2 tablets by mouth once daily. TURMERIC ROOT EXTRACT ORAL Take 2,000 mg by mouth once daily. Melatonin 5 mg cap Take 5 mg by mouth daily at bedtime. fish oil/omega-3/vit C/vit E (COROMEGA ORAL) Take 1 tablet by mouth once daily. REVIEW OF SYSTEMS Detailed 10 system review was performed, including general, dermatologic, ENT, cardiovascular, respiratory, endocrine, gastrointestinal, neurologic, ophthalmologic, musculoskeletal, and psychiatric. Pertinent information, positive and/or negative, were listed above in the narrative, otherwise non contributory. Past Medical, Family and Social history reviewed; unchanged from initial consult note. ANDERSON Solis is a 63 year old female who presents today because of chest pain. Yamilet has hx of dyslipidemia, with intolerance to multiple statins and on none at the present, borderline glycemia but got better with 25 lb weight loss. She has been experiencing chest pain, localized above her left breast, about 1.5 inc in diameter. the pain is constant when present, and intensity may vary from a mild 2/10 to the strong 4/10 in intensity. Stress brings it up. the pain may occur while she is charting generally mild, and may be more intense when busy. She has not focused on what may make the pain improve, or slow down. The chest pain is associate with palpitations, but not with the pain. she has noted high BP when at work, and no hx of essential HTN. She never smoked, but both parents smoked. Her mother of cancer and her father of pancreatitis neither of them had heart problems. She has had no more problems with lower extremity edema since she was started on HCTZ. She was diagnosed with MEGAN in 2016 and has been using the CPAP since September 2016 with significant improvement in her energy level, and quality of sleep. She has not hx of syncope. She reports of benign positional vertigo years ago. BP 130/70 Pulse 80 Ht 160 cm (5' 3 ) Wt 99.9 kg (220 lb 3.2 oz) BMI 39.01 kg/m? General appearance: Well nourished and developed in no acute distress. Skin: Dry, warm and well perfused Head: NC/AT Eyes: PERRLA, EOMI, anicteric sclerae Neck: Supple. No JVD, normal HJR. Thyroid symmetric. Normal carotid upstroke without bruits Chest: Symmetric expansion. Breast exam deferred Lungs: Good air entry. Clear to auscultation Heart: Regular rhythm. PMI not displaced. S1 and S2 normal, physiologically split S2. No S3 or S4. Systolic murmur at the base radiated . Diastolic murmur Abdomen: BS positive. Globose, treatable, non tender. No organomegaly. Cisneros's sign negative. : menopausal/deferred Extremities: No deformities. No edema. Musculoskeletal: full ROM Peripheral pulses: PT + bilaterally; DP + bilaterally. Neuro: Grossly intact INVESTIGATIONS EKG done today NSR @ 80 bpm. RBBB. LAB EXTERNAL LAB REVIEWED WITH PATIENT ASSESSMENT AND PLAN 63 yr old lady with hx of uncontrolled dyslipidemia and intolerance to statin, obesity and borderline glycemia presents for evaluation of atypical chest pain. 1. Atypical chest pain occurring with stress, mostly emotional she has no family hx of CAD and she never smoked, second hand smoking as child we are going to rule out stress induced ischemia and arrhythmia with pharm nuclear stress test, Knee pain does not allow her to walk 2. Baseline systolic murmur and RBBB on today EKG no previous EKG for comparison assess ventricular and valvular function with echo 3. Dyslipidemia, consider Zetia as alternative to statin, however she is following a keto diet and diarrhea may be increased by Zetia we will repeat lipid profile to assess for changes only with diet she would benefit from regular exercise and weight loss. Struggling to lose weight and keep it off. 4. Hypertension, recorded only at work. suggest to start low dose lisinopril during work days. she will bring the BP log at follow up RTC in about 7 weeks with stress test and echo Normal [facility] Vital Signs Date Time Vital Sign Value Performing Clinician Emi ibarra 02-20-2024 13:56-0500 Body height 159.4 cm Harshal Nevarez DO Work Phone: [facility] 02-20-2024 13:56-0500 Body mass index (BMI) [Ratio] 28.37 kg/m2 Harshal Furlong DO Work Phone: [facility] [employer] [facility] 02-20-2024 13:56-0500 Body temperature 97.5 [degF] Harshal Furlong DO Work Phone: [facility] 02-20-2024 13:56-0500 Body weight 72.08 kg Harshal Furlong DO Work Phone: [facility] 02-20-2024 13:56-0500 Diastolic blood pressure 56 mm[Hg] Harshal Furlong DO Work Phone: [facility] 02-20-2024 13:56-0500 Heart rate 72 /min Harshal Furlong DO Work Phone: [facility] 02-20-2024 13:56-0500 Respiratory rate 18 /min Harshal Furlong DO Work Phone: [facility] 02-20-2024 13:56-0500 SaO2% (BldA) [Mass fraction] 98 % Harshal Furlong DO Work Phone: [facility] 02-20-2024 13:56-0500 Systolic blood pressure 106 mm[Hg] Harshal Furlong DO Work Phone: [facility] 11-02-2023 12:42-0400 Body height 160.02 cm [facility] 11-02-2023 12:42-0400 Body mass index (BMI) [Ratio] 28.1 kg/m2 [facility] 11-02-2023 12:42-0400 Body temperature 98 [degF] [facility] 11-02-2023 12:42-0400 Body weight 72.12 kg [facility] 11-02-2023 12:42-0400 Diastolic blood pressure 71 mm[Hg] [facility] 11-02-2023 12:42-0400 Heart rate 71 /min [facility] 11-02-2023 12:42-0400 Respiratory rate 18 /min [facility] 11-02-2023 12:42-0400 SaO2% (BldA) [Mass fraction] 98 % [facility] 11-02-2023 12:42-0400 Systolic blood pressure 130 mm[Hg] [facility] 08-26-2023 12:47-0400 Body height 160.02 cm [facility] 08-26-2023 12:47-0400 Body mass index (BMI) [Ratio] 27.4 kg/m2 [facility] 08-26-2023 12:47-0400 Body temperature 98.9 [degF] [facility] 08-26-2023 12:47-0400 Body weight 70.3 kg [facility] 08-26-2023 12:47-0400 Diastolic blood pressure 68 mm[Hg] [facility] 08-26-2023 12:47-0400 Heart rate 62 /min [facility] 08-26-2023 12:47-0400 Respiratory rate 16 /min [facility] 08-26-2023 12:47-0400 SaO2% (BldA) [Mass fraction] 96 % [facility] 08-26-2023 12:47-0400 Systolic blood pressure 114 mm[Hg] [facility] 08-03-2023 08:24-0400 Blood Pressure Location [facility] 08-03-2023 08:24-0400 Diastolic blood pressure 76 mm[Hg] [facility] 08-03-2023 08:24-0400 Heart rate 62 /min [facility] Lue [facility] 08-03-2023 08:24-0400 Respiratory rate 16 /min Frances Lue [facility] 08-03-2023 08:24-0400 Systolic blood pressure 118 mm[Hg] [facility] L[facility] Encounters Encounter Date Encounter Type Care Provider Facility Start: 04-22-2024 End: 04-22-2024 Orders Only Harshal Nevarez DO Work Phone: [facility] Start: 04-16-2024 End: 04-16-2024 ambulatory [facility] Comment on above: Encounter for screen ing for osteoporosis (Primary Dx); Asymptomatic menopause Start: 02-20-2024 End: 02-20-2024 Office outpatient visit 15 minutes [facility]arshal Nevarez DO [facility] Comment on above: Encounter for osteop orosis screening in asymptomatic postmenopausal patient (Primary Dx); Vitamin D deficiency; Mixed hyperlipidemia Start: 02-20-2024 End: 02-20-2024 ambulatory [facility] Start: 11-10-2023 End: 11-10-2023 ambulatory [facility] Start: 11-09-2023 End: 11-09-2023 ambulatory Frances Arias Facility:[facility] Start: 11-09-2023 End: 11-09-2023 Patient encounter procedure Frances Arias [facility] Start: 11-02-2023 End: 11-02-2023 ambulatory [facility] Work Phone: Start: 11-02-2023 End: 11-02-2023 Patient encounter procedure [facility] Work Phone: Start: 09-15-2023 End: 09-15-2023 ambulatory [facility] Start: 08-26-2023 End: 08-26-2023 ambulatory [facility] Work Phone: Start: 08-26-2023 End: 08-26-2023 Patient encounter procedure [facility] Work Phone: Start: 08-03-2023 End: 08-03-2023 ambulatory Frances MRoseanne Boswelljuvencio [facility] Start: 08-03-2023 End: 08-03-2023 Lab Drop off Frances Arias [facility] Start: 08-03-2023 End: 08-03-2023 ambulatory Frances MRoseanne Boswelljuvencio Facility:[facility] Start: 08-03-2023 End: 08-03-2023 Patient encounter procedure Frances Arias [facility] Start: 07-14-2023 End: 07-15-2023 ambulatory [facility] Start: 07-14-2023 End: 07-14-2023 ambulatory [facility] Start: 04-22-2023 ambulatory Frances Andreiajuvencio Facility:[facility] Start: 04-21-2022 End: 04-22-[address] EDUARDO SPAULDING Facility:[facility] Start: 04-30-2020 End: 05-01-2020 Patient encounter procedure JESUS Mora DIA [facility] Procedures Date Procedure Procedure Detail Performing Clinician Start: 02-20-2024 Adult depression screening assessment Harshal Furlong DO Work Phone: Start: 06-14-2023 Mammography Harshal Furlong DO Work Phone: Start: 11-28-2022 Bypass of stomach Frances Lue Start: 07-16-2021 Colonoscopy Harshal Furlong DO Work Phone: Start: 02-29-2012 Knee region structure (body structure) Frances Lue Start: 02-28-2007 Intestinal structure (body structure) Frances Lue Start: 02-29-1996 Hysterectomy Frances Arias Colonoscopy Frances Arias 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 Start: 02-19-2025 Adult BMI Screening Adult BMI Screen ing [facility] Start: 02-19-2025 Depression Screening Depression Scre ening [facility] Start: 02-19-2025 Fall Risk Screening Fall Risk Screen ing [facility] Start: 02-19-2025 Tobacco Screening Tobacco Screening [facility] Start: 09-18-2024 End: 09-18-2024 Patient encounter procedure 09/18/2024 10:20 AM EDT Office Visit [facility] - Family Medicine [address] [place] [address] [facility] Start: 09-14-2024 Medicare Annual Wellness Visit Medicare Annual Wellness Visit [facility] Start: 06-13-2024 Screening for malign ant neoplasm of breast Mammogram [facility] Start: 04-16-2024 End: 04-16-2024 ambulatory 04/16/2024 11:15 AM EST Support Visit [facility] - Family Medicine [address] [place] [address] Harshal Nevarez, DO [address] [facility] [place] [address] [facility] Medicine - Family [facility] Start: 10-30-2023 Influenza vaccination Influenza Vacc ine [facility] Start: 02-23-2023 Adult BMI Follow Up Plan Adult BMI Follow Up Plan [facility] Start: 11-28-2022 DTaP,Tdap and Td Vaccines (2 - Td or Tdap) DTaP,Tdap and Td Vaccines (2 - Td or Tdap) [facility] Start: 07-05-1973 Adult BMI Follow Up Plan Adult BMI Follow Up Plan [facility] Immunizations Immunization Date Immunization Notes Care Provider Tania beckman 01-07-2023 influenza virus vacc ine, unspecified formulation Frances Arias [facility] 01-07-2023 Influenza, High-dose , Quadrivalent Harshal Furlong DO Work Phone: [facility] 12-14-2021 influenza virus vacc ine, unspecified formulation Frances Arias [facility] 12-14-2021 Influenza, High-dose , Quadrivalent Harshal Furlong DO Work Phone: [facility] 11-23-2021 SARS-CoV-2 (COVID-19 ) [id number] Frances Arias [facility] 11-23-2021 SARS-COV-2 (COVID-19 ) Vaccine, Unspecified Harshal Furlong DO Work Phone: [facility] 10-10-2021 pneumococcal polysaccharide vaccine, 23 valent Frances Arias [facility] 06-02-2021 Covid-19, Mrna, Lnp- s, Pf, 30 Mcg/0.3 Ml Dose, Franky-sucrose Harshal Furlong DO Work Phone: [facility] 06-02-2021 COVID-19, mRNA, LNP- S, PF, 30mcg/0.3mL Dose Harshal Furlong DO Work Phone: [facility] 06-02-2021 SARS-COV-2 (COVID-19 ) Vaccine, Unspecified Harshal Furlong DO Work Phone: [facility] 06-02-2021 SARS-CoV-2 mRNA (vbwpujgdqfh-ibbx-lnikic e) vaccine Frances Lue [facility] 01-01-2021 influenza virus vacc ine, unspecified formulation Frances Lue [facility] 01-01-2021 Influenza, High-dose , Quadrivalent Harshal Furlong DO Work Phone: [facility] 12-18-2020 SARS-CoV-2 (COVID-19 ) mRNA BNT-162b2 vax Frances Lue [facility] 12-18-2020 SARS-COV-2 (COVID-19 ) Vaccine, Unspecified Harshal Furlong DO Work Phone: [facility] 11-28-2020 SARS-CoV-2 (COVID-19 ) mRNA BNT-162b2 vax Frances Lue [facility] 11-28-2020 SARS-COV-2 (COVID-19 ) Vaccine, Unspecified Harshal Furlong DO Work Phone: [facility] 10-03-2020 pneumococcal conjuga te vaccine, 13 valent Frances Lue [facility] 03-24-2020 SARS-CoV-2 (COVID-19 ) mRNA BNT-162b2 vax Frances Lue [facility] 03-24-2020 SARS-COV-2 (COVID-19 ) Vaccine, Unspecified Harshal Furlong DO Work Phone: [facility] 03-03-2020 SARS-CoV-2 (COVID-19 ) mRNA BNT-992b2 vax Frances Lue [facility] 03-03-2020 SARS-COV-2 (COVID-19 ) Vaccine, Unspecified Harshal Furlong DO Work Phone: [facility] 01-10-2020 zoster vaccine recombinant Frances Lue [facility] 01-10-2020 zoster vaccine, live Harshal Furlong DO Work Phone: [facility] 10-31-2019 zoster vaccine recombinant Frances Lue [facility] 10-31-2019 zoster vaccine, live Harshal Furlong DO Work Phone: [facility] 12-26-2015 influenza virus vacc ine, unspecified formulation Frances Lue [facility] 12-26-2015 influenza, high dose seasonal, preservative-free Harshal Furlong DO Work Phone: [facility] 11-28-2014 influenza virus vacc ine, unspecified formulation Harshal Furlong DO Work Phone: [facility] 11-28-2014 influenza, injectabl e, quadrivalent, contains preservative Harshal Furlong DO Work Phone: [facility] 11-28-2014 influenza, unspecifi ed formulation Frances Lue [facility] 02-12-2014 influenza virus vacc ine, unspecified formulation Frances Lue [facility] 02-12-2014 influenza, seasonal, injectable Harshal Furlong DO Work Phone: [facility] 11-28-2012 tetanus toxoid, redu yandy diphtheria toxoid, and acellular pertussis vaccine, adsorbed Frances Lue [facility] Payers Date Payer Category Payer Medicare [id number] 2023 Commercial Managed C are - POS [employer] [id number] 2023 Private Health Insurance [id number] 2020 Medicare MEDICARE [id number] 1959 Medicare [id number] 1959 Private Health Insurance [id number] 1955 Unknown [id number] 1955 Unknown [id number]. [id number] 1955 Unknown [id number]. [id number] 1955 Unknown [id number]. [id number] 1955 Unknown [id number]. [id number] 1955 Unknown [id number]. 2.1286 1955 Unknown [id number]. [id number] 1955 Unknown [id number]. 2.1286 1955 Unknown [id number]. 2.1286 1955 Unknown [id number]. [id number] Medicare Medicare [id number] Social History Date Type Detail Facility Start: 10-27-2021 End: 08-03-2023 Tobacco smoking status Never smoked tobacco (finding) [facility] Tobacco smoking status Never [facility] Start: 09-15-2023 End: 02-20-2024 Sex Assigned At Female [facility] Start: 1955 Sex Assigned At Female F [facility] Start: 10-27-2021 Tobacco use and exposure Smokeless tobacco non-user [facility] Start: 02-20-2024 Alcoholic beverage intake Current drinker of alcohol (finding) [facility] Start: 09-15-2023 End: 02-20-2024 History of Social function [facility] Has the [employer], or [employer] threatened to shut off services in your home in past 12Mo No [facility] Are you now , , , , never or living with a partner? [facility] How often to you hav e a drink containing alcohol? Never [facility] Do you feel stress - tense, restless, nervous, or anxious, or unable to sleep at night because your mind is troubled all the time - these days [OSQ] Not at all [facility] Start: 10-27-2021 Alcohol Comment occasional [facility] Start: 10-03-2014 Sex Female (finding) [facility] Start: 01-27-2023 Gender identity Identifies as female gender (finding) [facility] Functional Status Date Assessment Result Facility 11-09-2023 [address] Af ter Exposure to Contagion Telehealth Patient [facility] 08-03-2023 Functional Status N/A [facility] Clinical Notes 08-03-2023 to 04-16-2024 Harshal Nevarez DO - 04/16/2024 11:15 AM Margaret Nevarez DO - 02/20/2024 1:45 PM EST Note Date & Type Note Facility 04-16-2024 History of Present illness Narrative Yamilet presents for a DEXA scan. She had 1 in the past. She does take calcium and vitamin- D. She has not had any recent fractures. She does not smoke or drink in excess. Her mother did not fracture her hip. documented in this encounter [facility] 02-20-2024 History of Present illness Narrative Subjective Patient ID: Yamilet Sherwood is a 68 y.o. female. Yamilet presents today to discuss her recent rotator cuff surgery. She would have anchors placed in her shoulder to anchor the rotator cuff. When he put the 1st anchor in it popped out. He noticed that her bones were soft. He recommend that she get a bone density test. He also checked a vitamin-D level which showed a vitamin-D of 59. It was 78 in the past. She is on vitamin-D supplement 5000 International Unit daily. The following portions of the patient's history were reviewed and updated as appropriate: allergies, current medications, past family history, past medical history, past social history, past surgical history, problem list, and medication reconciliation was completed including current medication and post discharge medication. Review of Systems Objective Physical Exam Constitutional: General: She is not in acute distress. HENT: Head: Normocephalic. Cardiovascular: Rate and Rhythm: Normal rate and regular rhythm. Pulses: Normal pulses. Heart sounds: Normal heart sounds. No murmur heard. Pulmonary: Effort: Pulmonary effort is normal. No respiratory distress. Breath sounds: Normal breath sounds. No wheezing, rhonchi or rales. Neurological: General: No focal deficit present. Mental Status: She is alert. Cranial Nerves: Cranial nerves 2-12 are intact. Psychiatric: Attention and Perception: Attention normal. Mood and Affect: Mood and affect normal. Speech: Speech normal. Behavior: Behavior normal. Behavior is cooperative. Thought Content: Thought content normal. Cognition and Memory: Cognition normal. Judgment: Judgment normal. Assessment/Plan Yamilet was seen today for to talk about the bone density test, hypertension and hyperlipidemia. Diagnoses and all orders for this visit: Encounter for osteoporosis screening in asymptomatic postmenopausal patient Check DEXA scan. May need medication. Vitamin D deficiency Vitamin-D level is normal but it did drop. We did discuss different supplementations but will continue on 5000 International Unit daily. Mixed hyperlipidemia Her last lipid panel was very good. Continue diet and exercise. documented in this encounter [facility] 11-09-2023 Hospital Discharge instructions Patient Education 11/09/2023 10:21:45 Dietary Guidelines to Help Prevent Kidney Stones Dietary Guidelines to Help Prevent Kidney Stones Kidney stones are deposits of minerals and salts that form inside your kidneys. Your risk of developing kidney stones may be greater depending on your diet, your lifestyle, the medicines you take, and whether you have certain medical conditions. Most people can lower their risks of developing kidney stones by following these dietary guidelines. Your dietitian may give you more specific instructions depending on your overall health and the type of kidney stones you tend to develop. What are tips for following this plan? Reading food labels Choose foods with no salt added or low-salt labels. Limit your salt (sodium) intake to less than 1,500 mg a day. Choose foods with calcium for each meal and snack. Try to eat about 300 mg of calcium at each meal. Foods that contain 200 500 mg of calcium a serving include: ?8 oz (237 mL) of milk, lgatfll-xblqyyaltkbq-miziu milk, and calcium-fortifiedfruit juice. Calcium-fortified means that calcium has been added to these drinks. ?8 oz (237 mL) of kefir, yogurt, and soy yogurt. ?4 oz (114 g) of tofu. ?1 oz (28 g) of cheese. ?1 cup (150 g) of dried figs. ?1 cup (91 g) of cooked broccoli. ?One 3 oz (85 g) can of sardines or mackerel. Most people need 1,000 1,500 mg of calcium a day. Talk to your dietitian about how much calcium is recommended for you. Shopping Buy plenty of fresh fruits and vegetables. Most people do not need to avoid fruits and vegetables, even if these foods contain nutrients that may contribute to kidney stones. When shopping for convenience foods, choose: ?Whole pieces of fruit. ?Pre-made salads with dressing on the side. ?Low-fat fruit and yogurt smoothies. Avoid buying frozen meals or prepared deli foods. These can be high in sodium. Look for foods with live cultures, such as yogurt and kefir. Choose high-fiber grains, such as whole-wheat breads, oat bran, and wheat cereals. Cooking Do not add salt to food when cooking. Place a salt shaker on the table and allow each person to add their own salt to taste. Use vegetable protein, such as beans, textured vegetable protein (TVP), or tofu, instead of meat in pasta, casseroles, and soups. Meal planning Eat less salt, if told by your dietitian. To do this: ?Avoid eating processed or pre-made food. ?Avoid eating fast food. Eat less animal protein, including cheese, meat, poultry, or fish, if told by your dietitian. To do this: ?Limit the number of times you have meat, poultry, fish, or cheese each week. Eat a diet free of meat at least 2 days a week. ?Eat only one serving each day of meat, poultry, fish, or seafood. ?When you prepare animal proteins, cut pieces into small portion sizes. For most meat and fish, one serving is about the size of the palm of your hand. Eat at least five servings of fresh fruits and vegetables each day. To do this: ?Keep fruits and vegetables on hand for snacks. ?Eat one piece of fruit or a handful of berries with breakfast. ?Have a salad and fruit at lunch. ?Have two kinds of vegetables at dinner. You may be told to limit foods that are high in a substance called oxalate. These include: ?Spinach (cooked), rhubarb, beets, sweet potatoes, and [place] chard. ?Peanuts. ?Potato chips, telugu fries, and baked potatoes with skin on. ?Nuts and nut products. ?Chocolate. If you regularly take a diuretic medicine, make sure to eat at least 1 or 2 servings of fruits or vegetables that are high in potassium each day. These include: ?Avocado. ?Banana. ?[place], prune, carrot, or tomato juice. ?Baked potato. ?Cabbage. ?Beans and split peas. Lifestyle Drink enough fluid to keep your urine pale yellow. This is the most important thing you can do. Spread your fluid intake throughout the day. If you drink alcohol: ?Limit how much you have to: ?0 1 drink a day for women who are not . ?0 2 drinks a day for men. ?Know how much alcohol is in your drink. In the [place] one drink equals one 12 oz bottle of beer (355 mL), one 5 oz glass of wine (148 mL), or one 1 oz glass of hard liquor (44 mL). Lose weight if told by your health care provider. Work with your dietitian to find an eating plan and weight loss strategies that work best for you. General information Talk to your health care provider and dietitian about taking daily supplements. Depending on your health and the cause of your kidney stones, you may be told: ?Do not take high-dose supplements of vitamin C (1,000 mg a day or more). ?To take a calcium supplement. ?To take a daily probiotic supplement. ?To take other supplements such as magnesium, fish oil, or vitamin B6. Take rclf-nkn-orqexwt and prescription medicines only as told by your health care provider. These include supplements. What foods should I limit? Limit your intake of the following foods, or eat them as told by your dietitian. Vegetables Spinach. Rhubarb. Beets. Canned vegetables. Pickles. Olives. Baked potatoes with skin. Grains Wheat bran. Baked goods. Salted crackers. Cereals high in sugar. Meats and other proteins Nuts. Nut butters. Large portions of meat, poultry, or fish. Salted, precooked, or cured meats, such as sausages, meat loaves, and hot dogs. Dairy Cheeses. Beverages Regular soft drinks. Regular vegetable juice. Seasonings and condiments Seasoning blends with salt. Salad dressings. Soy sauce. Ketchup. Barbecue sauce. Other foods Canned soups. Canned pasta sauce. Casseroles. Pizza. Lasagna. Frozen meals. Potato chips. Urdu fries. The items listed above may not be a complete list of foods and beverages you should limit. Contact a dietitian for more information. What foods should I avoid? Talk to your dietitian about specific foods you should avoid based on the type of kidney stones you have and your overall health. Fruits Grapefruit. The item listed above may not be a complete list of foods and beverages you should avoid. Contact a dietitian for more information. Summary Kidney stones are deposits of minerals and salts that form inside your kidneys. You can lower your risk of kidney stones by making changes to your diet. The most important thing you can do is drink enough fluid. Drink enough fluid to keep your urine pale yellow. Talk to your dietitian about how much calcium you should have each day, and eat less salt and animal protein as told by your dietitian. This information is not intended to replace advice given to you by your health care provider. Make sure you discuss any questions you have with your health care provider. Document Revised: 05/27/2022 Document Reviewed: 05/27/2022 [employer] Patient Education 2023 [employer]. Follow Up Care 08/03/2023 09:38:52 With:Hugo WHITE, Frances Nettles, URL, [facility] Address: [address] [place] [phone] When: Unknown Comments:1 yr w/ [employer] [facility] 11-09-2023 Note Patient Education Nephrology Dietary Guidelines to Help Prevent Kidney Stones Kidney stones are deposits of minerals and salts that form inside your kidneys. Your risk of developing kidney stones may be greater depending on your diet, your lifestyle, the medicines you take, and whether you have certain medical conditions. Most people can lower their risks of developing kidney stones by following these dietary guidelines. Your dietitian may give you more specific instructions depending on your overall health and the type of kidney stones you tend to develop. What are tips for following this plan? Reading food labels ? Choose foods with no salt added or low-salt labels. Limit your salt (sodium) intake to less than 1,500 mg a day. ? Choose foods with calcium for each meal and snack. Try to eat about 300 mg of calcium at each meal. Foods that contain 200?500 mg of calcium a serving include: ? 8 oz (237 mL) of milk, bghncul-twwgdidvtszl-pdxwi milk, and calcium-fortifiedfruit juice. Calcium-fortified means that calcium has been added to these drinks. ? 8 oz (237 mL) of kefir, yogurt, and soy yogurt. ? 4 oz (114 g) of tofu. ? 1 oz (28 g) of cheese. ? 1 cup (150 g) of dried figs. ? 1 cup (91 g) of cooked broccoli. ? One 3 oz (85 g) can of sardines or mackerel. Most people need 1,000?1,500 mg of calcium a day. Talk to your dietitian about how much calcium is recommended for you. Shopping ? Buy plenty of fresh fruits and vegetables. Most people do not need to avoid fruits and vegetables, even if these foods contain nutrients that may contribute to kidney stones. ? When shopping for convenience foods, choose: ? Whole pieces of fruit. ? Pre-made salads with dressing on the side. ? Low-fat fruit and yogurt smoothies. ? Avoid buying frozen meals or prepared deli foods. These can be high in sodium. ? Look for foods with live cultures, such as yogurt and kefir. ? Choose high-fiber grains, such as whole-wheat breads, oat bran, and wheat cereals. Cooking ? Do not add salt to food when cooking. Place a salt shaker on the table and allow each person to add their own salt to taste. ? Use vegetable protein, such as beans, textured vegetable protein (TVP), or tofu, instead of meat in pasta, casseroles, and soups. Meal planning ? Eat less salt, if told by your dietitian. To do this: ? Avoid eating processed or pre-made food. ? Avoid eating fast food. ? Eat less animal protein, including cheese, meat, poultry, or fish, if told by your dietitian. To do this: ? Limit the number of times you have meat, poultry, fish, or cheese each week. Eat a diet free of meat at least 2 days a week. ? Eat only one serving each day of meat, poultry, fish, or seafood. ? When you prepare animal proteins, cut pieces into small portion sizes. For most meat and fish, one serving is about the size of the palm of your hand. ? Eat at least five servings of fresh fruits and vegetables each day. To do this: ? Keep fruits and vegetables on hand for snacks. ? Eat one piece of fruit or a handful of berries with breakfast. ? Have a salad and fruit at lunch. ? Have two kinds of vegetables at dinner. ? You may be told to limit foods that are high in a substance called oxalate. These include: ? Spinach (cooked), rhubarb, beets, sweet potatoes, and [place] chard. ? Peanuts. ? Potato chips, telugu fries, and baked potatoes with skin on. ? Nuts and nut products. ? Chocolate. ? If you regularly take a diuretic medicine, make sure to eat at least 1 or 2 servings of fruits or vegetables that are high in potassium each day. These include: ? Avocado. ? Banana. ? [place], prune, carrot, or tomato juice. ? Baked potato. ? Cabbage. ? Beans and split peas. Lifestyle ? Drink enough fluid to keep your urine pale yellow. This is the most important thing you can do. Spread your fluid intake throughout the day. ? If you drink alcohol: ? Limit how much you have to: ? 0?1 drink a day for women who are not . ? 0?2 drinks a day for men. ? Know how much alcohol is in your drink. In the [place] one drink equals one 12 oz bottle of beer (355 mL), one 5 oz glass of wine (148 mL), or one 1? oz glass of hard liquor (44 mL). ? Lose weight if told by your health care provider. Work with your dietitian to find an eating plan and weight loss strategies that work best for you. General information ? Talk to your health care provider and dietitian about taking daily supplements. Depending on your health and the cause of your kidney stones, you may be told: ? Do not take high-dose supplements of vitamin C (1,000 mg a day or more). ? To take a calcium supplement. ? To take a daily probiotic supplement. ? To take other supplements such as magnesium, fish oil, or vitamin B6. ? Take iobs-geg-pkkhbhy and prescription medicines only as told by your health care provider. These include suppleme (more content not included)... [facility] 08-03-2023 Hospital Discharge instructions Patient Education 08/03/2023 09:19:13 Kegel Exercises Kegel Exercises Kegel exercises can help strengthen your pelvic floor muscles. The pelvic floor is a group of muscles that support your rectum, small intestine, and bladder. In females, pelvic floor muscles also help support the uterus. These muscles help you control the flow of urine and stool (feces). Kegel exercises are painless and simple. They do not require any equipment. Your provider may suggest Kegel exercises to: Improve bladder and bowel control. Improve sexual response. Improve weak pelvic floor muscles after surgery to remove the uterus (hysterectomy) or after , in females. Improve weak pelvic floor muscles after prostate gland removal or surgery, in males. Kegel exercises involve squeezing your pelvic floor muscles. These are the same muscles you squeeze when you try to stop the flow of urine or keep from passing gas. The exercises can be done while sitting, standing, or lying down, but it is best to vary your position. Ask your health care provider which exercises are safe for you. Do exercises exactly as told by your health care provider and adjust them as directed. Do not begin these exercises until told by your health care provider. Exercises How to do Kegel exercises: 1.Squeeze your pelvic floor muscles tight. You should feel a tight lift in your rectal area. If you are a female, you should also feel a tightness in your vaginal area. Keep your stomach, buttocks, and legs relaxed. 2.Hold the muscles tight for up to 10 seconds. 3.Breathe normally. 4.Relax your muscles for up to 10 seconds. 5.Repeat as told by your health care provider. Repeat this exercise daily as told by your health care provider. Continue to do this exercise for at least 4 6 weeks, or for as long as told by your health care provider. You may be referred to a physical therapist who can help you learn more about how to do Kegel exercises. Depending on your condition, your health care provider may recommend: Varying how long you squeeze your muscles. Doing several sets of exercises every day. Doing exercises for several weeks. Making Kegel exercises a part of your regular exercise routine. This information is not intended to replace advice given to you by your health care provider. Make sure you discuss any questions you have with your health care provider. Document Revised: 06/25/2021 Document Reviewed: 06/25/2021 [employer] Patient Education 2022 [employer]. 08/03/2023 09:00:09 Kidney Stones Kidney Stones Kidney stones are solid, rock-like deposits that form inside of the kidneys. The kidneys are a pair of organs that make urine. A kidney stone may form in a kidney and move into other parts of the urinary tract, including the tubes that connect the kidneys to the bladder (ureters), the bladder, and the tube that carries urine out of the body (urethra). As the stone moves through these areas, it can cause intense pain and block the flow of urine. Kidney stones are created when high levels of certain minerals are found in the urine. The stones are usually passed out of the body through urination, but in some cases, medical treatment may be needed to remove them. What are the causes? Kidney stones may be caused by: A condition in which certain glands produce too much parathyroid hormone (primary hyperparathyroidism), which causes too much calcium buildup in the blood. A buildup of uric acid crystals in the bladder (hyperuricosuria). Uric acid is a chemical that the body produces when you eat certain foods. It usually leaves the body in the urine. Narrowing (stricture) of one or both of the ureters. A kidney blockage that is present at (congenital obstruction). Past surgery on the kidney or the ureters. What increases the risk? The following factors may make you more likely to develop this condition: Having had a kidney stone in the past. Having a family history of kidney stones. Not drinking enough water. Eating a diet that is high in protein, salt (sodium), or sugar. Being overweight or obese. What are the signs or symptoms? Symptoms of a kidney stone may include: Pain in the side of the abdomen, right below the ribs (flank pain). Pain usually spreads (radiates) to the groin. Needing to urinate often or urgently. Painful urination. Blood in the urine (hematuria). Nausea. Vomiting. Fever and chills. How is this diagnosed? This condition may be diagnosed based on: Your symptoms and medical history. A physical exam. Blood tests. Urine tests. These may be done before and after the stone passes out of your body through urination. Imaging tests, such as a CT scan, abdominal X-ray, or ultrasound. A procedure to examine the inside of the bladder (cystoscopy). How is this treated? Treatment for kidney stones depends on the size, location, and makeup of the stones. Kidney stones will often pass out of the body through urination. You may need to: Increase your fluid intake to help pass the stone. In some cases, you may be given fluids through an IV and may need to be monitored in the hospital. Take medicine for pain. Make changes in your diet to help prevent kidney stones from coming back. Sometimes, procedures are needed to remove a kidney stone. This may involve: A procedure to break up kidney stones using: ?A focused beam of light (laser therapy). ?Shock waves (extracorporeal shock wave lithotripsy). Surgery to remove kidney stones. This may be needed if you have severe pain or have stones that block your urinary tract. Follow these instructions at home: Medicines Take [id number] and prescription medicines only as told by your health care provider. Ask your health care provider if the medicine prescribed to you requires you to avoid driving or using heavy machinery. Eating and drinking Drink enough fluid to keep your urine pale yellow. You may be instructed to drink at least 8 10 glasses of water each day. This will help you pass the kidney stone. If directed, change your diet. This may include: ?Limiting how much sodium you eat. ?Eating more fruits and vegetables. ?Limiting how much animal protein you eat. Animal proteins include red meat, poultry, fish, and eggs. ?Eating a normal amount of calcium (1,000 1,300 mg per day). Follow instructions from your health care provider about eating or drinking restrictions. General instructions Collect urine samples as told by your health care provider. You may need to collect a urine sample: ?24 hours after you pass the stone. ?8 12 weeks after you pass the kidney stone, and every 6 12 months after that. Strain your urine every time you urinate, for as long as directed. Use the strainer that your health care provider recommends. Do not throw out the kidney stone after passing it. Keep the stone so it can be tested by your health care provider. Testing the makeup of your kidney stone may help prevent you from getting kidney stones in the future. Keep all follow-up visits. You may need follow-up X-rays or ultrasounds to make sure that your stone has passed. How is this prevented? To prevent another kidney stone: Drink enough fluid to keep your urine pale yellow. This is the best way to prevent kidney stones. Eat a healthy diet. Follow recommendations from your health care provider about foods to avoid. Recommendations vary depending on the type of kidney stone that you have. You may be instructed to eat a low-protein diet. Maintain a healthy weight. Where to find more information National Kidney Foundation (NKF): www.kidney.org [employer] (UCF): www.urologyhealth.org Contact a health care provider if: You have pain that gets worse or does not get better with medicine. Get help right away if: You have a fever or chills. You develop severe pain. You develop new abdominal pain. You faint. You are unable to urinate. Summary Kidney stones are solid, rock-like deposits that form inside of the kidneys. Kidney stones can cause nausea, vomiting, blood in the urine, abdominal pain, and the urge to urinate often. Treatment for kidney stones depends on the size, location, and makeup of the stones. Kidney stones will often pass out of the body through urination. Kidney stones can be prevented by drinking enough fluids, eating a healthy diet, and maintaining a healthy weight. This information is not intended to replace advice given to you by your health care provider. Make sure you discuss any questions you have with your health care provider. Document Revised: 05/26/2022 Document Reviewed: 05/26/2022 [employer] Patient Education 2022 [employer]. Follow Up Care 04/22/2023 09:12:56 With:Hugo WHITE, Frances Nettles, URL, [facility] Address: [place] [address]- [phone] When: Unknown Comments:2 mos w/ CT scan, [facility]ol[facility] and blood work [facility] Evaluation + Plan note Future Appointments Appointment Date:11/09/2023 09:45:00 AM Scheduled Provider:Frances Arias MD Location:[facility] Appointment Type:URO Office Visit [facility] Evaluation + Plan note Future Appointments Appointment Date:11/09/2023 09:45:00 AM Scheduled Provider:Frances Arias MD Location:[facility] Appointment Type:URO Office Visit Diagnostic Tests PendingPTH Intact 08/03/23 [facility] Evaluation note Diagnosis Onset Date Conjunctivitis, left eye acu [facility] Work Phone: Evaluation note* Diagnosis Encounter for osteoporosis screening in asymptomatic postmenopausal patient- Primary Vitamin D deficiency Mixed hyperlipidemia [facility] Encounter for screening for osteoporosis- Primary Asymptomatic menopause [facility] N[facility] No data available for this section [facility] Hospital Discharge instructions No data available for this section [facility] filedocumented in this encounter [facility] filedocumented in this [facility] filedocumented in this [facility] No data available for this section [facility] Summary Purpose Family History No Family History Records FoundNo Family History Records FoundNo Family History Records FoundNo Family History Records FoundNo Family History Records Found No data available for this section No data available for this section No Family History Records FoundNo Family History Records FoundNo Family History Records FoundNo Family History Records Found No data available for this section No Family History Records FoundNo Family History Records Found Advance Directives Advance Directive Response Recorded Date/ Time Advance Directives No August 25 12:32pm Chief Complaint and Reason for Visit Chief Complaint Eye irritation Reason for Visit Conjunctivitis, left eye Chief Complaint Eye irritation Ear ache Reason for Visit Conjunctivitis, left eye Additional Source Comments INFORMATION SOURCE (unrecogn ized section and content) DATE CREATED AUTHOR 08/01/2019 [facility] DATE CREATED AUTHOR AUTHOR'S ORGANIZ ATION 05/01/2020 [facility] DATE CREATED AUTHOR AUTHOR'S ORGANIZ ATION 04/14/2021 [facility] DATE CREATED AUTHOR AUTHOR'S ORGANIZ ATION 04/25/2022 [facility] DATE CREATED AUTHOR AUTHOR'S ORGANIZ ATION 07/17/2023 [facility] DATE CREATED AUTHOR AUTHOR'S ORGANIZ ATION 08/05/2023 [facility] DATE CREATED AUTHOR AUTHOR'S ORGANIZ ATION 08/07/2023 [facility] DATE CREATED AUTHOR AUTHOR'S ORGANIZ ATION 11/18/2023 [facility] DATE CREATED AUTHOR AUTHOR'S ORGANIZ ATION 04/17/2024 [facility] Patient Care team informatio n (unrecognized section and content) Team Status: Active Member Role Status Dates Harshal Nevarez DO Primary Care Provider Active Team Status: Inactive Member Role Status Dates Monique Magana APRN Attending Provider Active Start: August 26, 2023 End: August 26, 2023 Harshal Nevarez DO Primary Care Provider Active Start: August 26, 2023 End: August 26, 2023 Team Status: Inactive Member Role Status Dates Harshal Nevarez DO Primary Care Provider Active Start: November 02, 2023 End: November 02, 2023 Kathy SILVA APRN Attending Provider Active Start: November 02, 2023 End: November 02, 2023 Traveling Secretary Relationship Specialty Start Date End Date Harshal Nevarez DO [address] [address] [address], [place] [address] PCP - General Family Medicine 08/26/23 Traveling Secretary Relationship Specialty Start Date End Date Harshal Nevarez DO [address] [place] [address] PCP - General Family Medicine 08/26/23 Traveling Secretary Relationship Specialty Start Date End Date Harshal Nevarez DO [address] [place] [address] PCP - General Family Medicine 08/26/23 Goals (unrecognized section and content) Goals may be documented in a n alternate section Reason for Visit (unrecogniz ed section and content) Reason Comments To Talk about the Bone Density test CV Hypertension Hyperlipidemia FOR RECORDS PERTAINING TO PATIENTS WHO ARE OR HAVE BEEN ENROLLED IN A CHEMICAL DEPENDENCY/SUBSTANCEABUSE PROGRAM, SOME INFORMATION MAY BE OMITTED. This clinical summary was aggregated from multiple sources. Caution should be exercised in using it in the provision of clinical care. This summary normalizes information from multiple sources, and as a consequence, information in this document may materially change the coding, format and clinical context of patient data. In addition, data may be omitted in some cases. CLINICAL DECISIONS SHOULD BE BASED ON THE PRIMARY CLINICAL RECORDS. [employer] provides no warranty or guarantee of the accuracy or completeness of information in this document.
[2024-04-23 12:45] LABS: Bilirubin Urine NEGATIVE (NEGATIVE); Blood Urine LARGE (NEGATIVE); Clarity Urine SL CLOUDY (CLEAR); Glucose Urine UA NEGATIVE (NEGATIVE); Ketones Urine 40 mg/dL (NEGATIVE); Leukocyte Esterase Urine LARGE (NEGATIVE); Nitrite Urine POSITIVE (NEGATIVE); Protein Urine 100 mg/dL (NEG/TRACE); Specific Gravity Urine 1.015 (1.005-1.025)
[2024-04-23 12:46] LABS: Color Urine DK YELLOW (YELLOW)
[2024-04-23 12:58] LABS: Bacteria Urine LARGE #/HPF (NONE SEEN); Cast Seen? NONE SEEN #/LPF (NONE SEEN); Crystals Seen? None Seen #/HPF (None Seen); Mucus Urine TRACE (NONE SEEN); RBC Urine 20-50 #/HPF (0-2); Squamous Epithelial Cell Urine RARE #/LPF (NONE/RARE); Urine Culture Indicated YES-FRMC; WBC Urine 20-50 #/HPF (NONE SEEN)
[2024-04-23 13:15] LABS: Basophils Percent Auto 0.4 % (0.2-2.0); Eosinophils Percent Auto 0.1 % (0.9-7.0); Hemoglobin 14.4 g/dL (12.0-16.0); Immature Granulocytes Abs Auto 0.02 10^3/uL (0.00-0.03); Immature Granulocytes Pct Auto 0.2 % (0.0-0.5); Lymphocytes Percent Auto 9.2 % (20.5-60.0); Mean Corpuscular HGB Conc 34.3 g/dL (29.9-35.2); Mean Corpuscular Hemoglobin 31.7 pg (26.7-34.0); Mean Corpuscular Volume 92.5 fL (81.0-99.0); Mean Platelet Volume 10.4 fL (9.5-13.5); Monocytes Absolute Auto 0.9 10^3/uL (0.3-0.8); Monocytes Percent Auto 8.7 % (1.7-12.0); Neutrophils Absolute Auto 8.5 10^3/uL (1.4-6.5); Neutrophils Percent Auto 81.4 % (43.0-75.0); Platelet Count 185 10^3/uL (150-450); Red Blood Count 4.54 10^6/uL (4.20-5.40); Red Cell Distribution Width 13.1 % (11.0-15.0); White Blood Count 10.5 10^3/uL (4.0-11.0)
[2024-04-23 13:29] LABS: Alanine Aminotransferase 37 U/L (14-59); Albumin Globulin Ratio 0.9; Albumin Level 3.4 g/dL (3.4-5.0); Alkaline Phosphatase 103 U/L (46-116); Anion Gap 13.4; Aspartate Amino Transferase 22 U/L (15-37); BUN Creatinine Ratio 13.9; Bilirubin Total 0.9 mg/dL (0.2-1.0); Calcium 9.3 mg/dL (8.5-10.1); Carbon Dioxide 26.8 mmol/L (21.0-32.0); Chloride 100 mmol/L (98-107); Estimated GFR (African America >60 (>=60 mL/min/1.73m^2); Estimated GFR (Non-African Ame >60 (>=60 mL/min/1.73m^2); Globulin 3.8 g/dL; Glucose 99 mg/dL (74-106); Potassium 4.2 mmol/L (3.5-5.1); Sodium 136 mmol/L (136-145); Total Protein 7.2 g/dL (6.4-8.2)
[2024-04-23 13:30] VITALS: BP 139/68; PULSE 81; TEMP 38.3; O2SAT 97
[2024-04-23 13:38] LABS: Influenza Virus A Antigen Negative; Influenza Virus B Antigen Negative; Internal Control Within Normal Limits
[2024-04-23 13:39] LABS: Internal Control Within Normal Limits; SARS-CoV-2 Ag NEGATIVE (NEGATIVE)
--- NOTE | 2024-04-23 13:41 | ED.GENADUL1 ---
HPI HPI - General Adult General Chief complaint: Fever Stated complaint: RIGHT FLANK PAIN Time Seen by Provider: 04/23/24 12:48 Source: patient Mode of arrival: walk-in Limitations: no limitations History of Present Illness HPI narrative: Patient is a 68-year-old female who presents to the emergency department for evaluation of flank pain, body aches, fever. She states symptoms have been present for 4 days. She has a history of kidney stones and thinks she may have another kidney stone. She passed a kidney stone a year ago, she has never required surgery for a kidney stone in the past. She reports temperatures at home as high as 100.3 Fahrenheit. Last dose of Tylenol was 930 this morning. She reports dry heaving several days ago, but has not had any persistent vomiting. No diarrhea. She has no significant abdominal pain. No significant cough or congestion. Related Data Home Medications ?Medication ?Instructions ?Recorded ?Confirmed trazodone 50 mg tablet 50 mg PO BEDTIME 04/23/24 04/23/24 Allergies Allergy/AdvReac Type Severity Reaction Status Date / Time nickel AdvReac Mild Rash Verified 04/23/24 11:53 Penicillins AdvReac Mild itching Verified 04/23/24 11:53 scopolamine AdvReac Mild Rash Verified 04/23/24 11:53 Opioid HPI Opioid Management Most Recent Opioid Data: Last Pain Scale 6 04/23/24 19:30 04/23/24 Last ED Pain Assessment 04/23/24 19:30 Last MAR Pain Assessment 04/23/24 16:04 Review of Systems ROS Constitutional Reports: fever and chills Ears, nose, mouth, and throat Denies: throat pain or nasal congestion Cardiovascular Denies: chest pain Respiratory Denies: shortness of breath or cough Gastrointestinal Reports: nausea and vomiting; Denies: abdominal pain or diarrhea Musculoskeletal Reports: back pain Integumentary/Breast Denies: rash Neurological Denies: numbness in extremities or weakness in extremities Hematologic/Lymphatic Denies: easy bruising or easy bleeding Exam Narrative Exam Narrative: Gen.: Awake, alert, in no distress Head: Normocephalic, atraumatic ENT: Moist mucous membranes Respiratory: No respiratory distress, lungs clear bilaterally Cardio: Regular rate and rhythm Gastrointestinal: Abdomen is soft, nondistended and nontender to palpation; tenderness of the flanks with no specific CVA tenderness. No pain out of proportion on exam Extremities: Moves extremities equally Psych: Normal mood and affect Neuro: No focal neuro deficit Skin: Warm, dry, intact Constitutional Vital Signs, click to edit/add: Last Vital Signs Temp 98.8 F 04/23/24 16:07 Pulse 68 04/23/24 19:32 Resp 16 04/23/24 19:32 BP 108/71 04/23/24 19:32 Pulse Ox 95 04/23/24 19:32 O2 Del Method Room Air 04/23/24 16:07 Course Vital Signs Vital signs: Vital Signs Temperature 100.4 F 04/23/24 11:53 Pulse Rate 87 04/23/24 11:53 Respiratory Rate 18 04/23/24 11:53 Blood Pressure 143/69 H 04/23/24 11:53 Pulse Oximetry 96 04/23/24 11:53 Oxygen Delivery Method Room Air 04/23/24 11:53 Temperature 98.8 F 04/23/24 16:07 Pulse Rate 68 04/23/24 19:32 Respiratory Rate 16 04/23/24 19:32 Blood Pressure 108/71 04/23/24 19:32 Pulse Oximetry 95 04/23/24 19:32 Oxygen Delivery Method Room Air 04/23/24 16:07 Medical Decision Making MDM Narrative Medical decision making narrative: Patient was initially medicated with IV fluids, Tylenol, Toradol. She had some improvement, additional Zofran and Dilaudid were given with significant improvement. She remains hemodynamically stable, temperature has improved. She was noted to have a nitrite positive UTI and was treated with 2 g of IV Rocephin. CT scan shows the patient has an 8 mm stone at the right mid distal ureter with moderate hydro-nephrosis. She has a normal white blood cell count, normal lactic acid. She is hemodynamically stable. Fever resolved with Tylenol and Toradol. Case was discussed with Dr. Fregoso for urology ([id number]) who will plan to stent the patient in the morning, however due to fever and UTI, he requested that the patient be sent to [facility] so she becomes hemodynamically stable, she can have a procedure for an emergent stent. We do not have surgical services at this facility after 5 PM. I discussed the case with Dr. Blackman ([id number]) for the hospitalist service at [facility] who stated that they do not have any beds to accept the patient for transfer but the patient can be sent to the ER if her condition deteriorates. At this time, the patient is hemodynamically stable but there is concerned that if she does become unstable, transport may be an issue to get her to a tertiary care facility with surgical capabilities. Case was discussed with Dr. Pagan in the [facility] emergency department who accepted the patient for transfer to the emergency department as their bed situation improves ([id number]). Patient's will drive the patient to the emergency department. They are in agreement with treatment plan. SUPERVISED APC VISIT, PHYSICIAN ATTESTATION: Based on the medical record the care appears appropriate. ? Medical Records Medical records reviewed: Yes I reviewed the patient's medical records Lab Data Lab results reviewed: Yes I reviewed the patient's lab results Labs: Lab Results 04/23/24 04/23/24 04/23/24 Range/Units 12:00 13:08 13:28 WBC 10.5 (4.0-11.0) 10^3/uL RBC 4.54 (4.20-5.40) 10^6/uL Hgb 14.4 (12.0-16.0) g/dL Hct 42.0 (36.0-48.0) % MCV 92.5 (81.0-99.0) fL MCH 31.7 (26.7-34.0) pg MCHC 34.3 (29.9-35.2) g/dL RDW 13.1 (11.0-15.0) % Plt Count 185 (150-450) 10^3/uL MPV 10.4 (9.5-13.5) fL Neut % (Auto) 81.4 H (43.0-75.0) % Lymph % (Auto) 9.2 L (20.5-60.0) % Moore % (Auto) 8.7 (1.7-12.0) % Eos % (Auto) 0.1 L (0.9-7.0) % Baso % (Auto) 0.4 (0.2-2.0) % Neut # (Auto) 8.5 H (1.4-6.5) 10^3/uL Lymph # (Auto) 1.0 L (1.2-3.8) 10^3/uL Moore # (Auto) 0.9 H (0.3-0.8) 10^3/uL Eos # (Auto) 0.0 (0.0-0.7) 10^3/uL Baso # (Auto) 0.0 (0.0-0.1) 10^3/uL Abs Immat Gran (auto) 0.02 (0.00-0.03) 10^3/uL Imm/Tot Granulo (auto) 0.2 (0.0-0.5) % VBG pH 7.431 H (7.330-7.430) VBG pCO2 43.0 (40.0-52.0) mmHg Sodium 136 (136-145) mmol/L Potassium 4.2 (3.5-5.1) mmol/L Chloride 100 (98-107) mmol/L Carbon Dioxide 26.8 (21.0-32.0) mmol/L Anion Gap 13.4 BUN 10.0 (7.0-18.0) mg/dL Creatinine 0.72 (0.55-1.02) mg/dL Est GFR ( Amer) >60 (>=60 mL/min/1.73m^2) Est GFR (Non-Af Amer) >60 (>=60 mL/min/1.73m^2) BUN/Creatinine Ratio 13.9 Glucose 99 (74-106) mg/dL Lactate (0.4-2.0) mmol/L Calcium 9.3 (8.5-10.1) mg/dL Total Bilirubin 0.9 (0.2-1.0) mg/dL AST 22 (15-37) U/L ALT 37 (14-59) U/L Alkaline Phosphatase 103 (46-116) U/L Total Protein 7.2 (6.4-8.2) g/dL Albumin 3.4 (3.4-5.0) g/dL Globulin 3.8 g/dL Albumin/Globulin Ratio 0.9 Urine Color Dk yellow (YELLOW) Urine Clarity Sl cloudy (CLEAR) Urine pH 6.0 (5.0-9.0) Ur Specific [place] 1.015 (1.005-1.025) Urine Protein 100 A (NEG/TRACE) mg/dL Urine Glucose (UA) Negative (NEGATIVE) mg/dL Urine Ketones 40 A (NEGATIVE) mg/dL Urine Occult Blood Large A (NEGATIVE) Urine Nitrite Positive A (NEGATIVE) Urine Bilirubin Negative (NEGATIVE) Urine Urobilinogen 1.0 (0.2-1.0) EU/dL Ur Leukocyte Esterase Large A (NEGATIVE) Urine RBC 20-50 A (0-2) #/HPF Urine WBC 20-50 A (NONE SEEN) #/HPF Ur Squamous Epith Cells Rare (NONE/RARE) #/LPF Urine Crystals None seen (None Seen) #/HPF Urine Bacteria Large A (NONE SEEN) #/HPF Urine Casts None seen (NONE SEEN) #/LPF Urine Mucus Trace A (NONE SEEN) Ur Culture Indicated? Yes-[facility] [place] Influenza Type A Ag Negative Influenza Type B Ag Negative SARS-CoV-2 Ag (CV2AG) Negative (NEGATIVE) 04/23/24 Range/Units 13:35 WBC (4.0-11.0) 10^3/uL RBC (4.20-5.40) 10^6/uL Hgb (12.0-16.0) g/dL Hct (36.0-48.0) % MCV (81.0-99.0) fL MCH (26.7-34.0) pg MCHC (29.9-35.2) g/dL RDW (11.0-15.0) % Plt Count (150-450) 10^3/uL MPV (9.5-13.5) fL Neut % (Auto) (43.0-75.0) % Lymph % (Auto) (20.5-60.0) % Moore % (Auto) (1.7-12.0) % Eos % (Auto) (0.9-7.0) % Baso % (Auto) (0.2-2.0) % Neut # (Auto) (1.4-6.5) 10^3/uL Lymph # (Auto) (1.2-3.8) 10^3/uL Moore # (Auto) (0.3-0.8) 10^3/uL Eos # (Auto) (0.0-0.7) 10^3/uL Baso # (Auto) (0.0-0.1) 10^3/uL Abs Immat Gran (auto) (0.00-0.03) 10^3/uL Imm/Tot Granulo (auto) (0.0-0.5) % VBG pH (7.330-7.430) VBG pCO2 (40.0-52.0) mmHg Sodium (136-145) mmol/L Potassium (3.5-5.1) mmol/L Chloride (98-107) mmol/L Carbon Dioxide (21.0-32.0) mmol/L Anion Gap BUN (7.0-18.0) mg/dL Creatinine (0.55-1.02) mg/dL Est GFR ( Amer) (>=60 mL/min/1.73m^2) Est GFR (Non-Af Amer) (>=60 mL/min/1.73m^2) BUN/Creatinine Ratio Glucose (74-106) mg/dL Lactate 1.1 (0.4-2.0) mmol/L Calcium (8.5-10.1) mg/dL Total Bilirubin (0.2-1.0) mg/dL AST (15-37) U/L ALT (14-59) U/L Alkaline Phosphatase (46-116) U/L Total Protein (6.4-8.2) g/dL Albumin (3.4-5.0) g/dL Globulin g/dL Albumin/Globulin Ratio Urine Color (YELLOW) Urine Clarity (CLEAR) Urine pH (5.0-9.0) Ur Specific [place] (1.005-1.025) Urine Protein (NEG/TRACE) mg/dL Urine Glucose (UA) (NEGATIVE) mg/dL Urine Ketones (NEGATIVE) mg/dL Urine Occult Blood (NEGATIVE) Urine Nitrite (NEGATIVE) Urine Bilirubin (NEGATIVE) Urine Urobilinogen (0.2-1.0) EU/dL Ur Leukocyte Esterase (NEGATIVE) Urine RBC (0-2) #/HPF Urine WBC (NONE SEEN) #/HPF Ur Squamous Epith Cells (NONE/RARE) #/LPF Urine Crystals (None Seen) #/HPF Urine Bacteria (NONE SEEN) #/HPF Urine Casts (NONE SEEN) #/LPF Urine Mucus (NONE SEEN) Ur Culture Indicated? Influenza Type A Ag Influenza Type B Ag SARS-CoV-2 Ag (CV2AG) (NEGATIVE) Imaging Data CT scan - abdomen: Attestation: I have reviewed the pertinent imaging results. Radiologist's impression: ITS Impressions Abdomen/Pelvis CT 04/23/24 14:24 IMPRESSION: There is an 8 mm stone in the mid to distal right ureter contributing to right-sided hydronephrosis. This is new. Additional nonobstructing stone is noted in the right renal collecting system. Impression dictated by: Soren Medeiros M.D.04/23/2024 4:25 PM Dictation Location: [place] [address] Electronically authenticated by: [id number] Y Date: 04/23/2024 16:25 Discharge Plan Discharge Chief Complaint: Fever Clinical Impression: Right ureteral calculus, Acute UTI, Fever Patient Disposition: [facility] Time of Disposition Decision: 20:27 Discharge location: [facility] ED Condition: Good Mode of Transportation: Private Vehicle Prescriptions / Home Meds: No Action trazodone 50 mg tablet 50 mg PO BEDTIME Print Language: Turkmen Referrals: CASEY PAEZ [Primary Care Provider] - 1 week
[2024-04-23 13:52] LABS: pH VBG 7.431 (7.330-7.430)
[2024-04-23 14:08] LABS: Lactate/Lactic Acid 1.1 mmol/L (0.4-2.0)
[2024-04-23] MEDS: KETOROLAC TROMETHAMINE 30 MG/ML VIAL IVP (14:09)
[2024-04-23] MEDS: ACETAMINOPHEN 325 MG TABLET 650 MG PO (14:10)
[2024-04-23] MEDS: 0.9 % SODIUM CHLORIDE 1,000 ML 1000 ML IV (14:12)
[2024-04-23] MEDS: CEFTRIAXONE 2,000 MG in 0.9 % SODIUM CHLORIDE 100 ML 200 MG IV (14:12)
--- NOTE | 2024-04-23 14:24 | CT_ITS ---
The [address] [address] Patient Name: YAMILET GALAVIZ MRN: [id number] date: 1955 Sex: F Assigned Patient Location: ER Current Patient Location: ER Accession/Order Number: [id number] Exam Date: 04/23/2024 16:21 Report Date: 04/23/2024 16:25 At the request of: GIANNA MONTALVO MD Procedure: CT abdomen pelvis wo con CT abdomen pelvis wo con 04/23/2024 2:25 PM SIGNS AND SYMPTOMS: ^flank pain and UTI TECHNIQUE: Multidetector ct axial images of the abdomen and pelvis were obtained without IV contrast. Multiplanar reformats were performed and reviewed to further define anatomy and possible pathology. CT was performed with one or more of the following dose reduction techniques: Automated exposure control, adjustment of the mA and/or kV according to patient size, or use of iterative reconstruction technique. COMPARISON: 08/19/2023 FINDINGS: Lower Chest: Scarring is noted in the lung bases. ABDOMEN: Liver: Within normal limits. Bile Ducts: Normal caliber. Gallbladder: No calcified gallstones. Normal caliber wall. Pancreas: Within normal limits. Spleen: Within normal limits. Adrenals: Within normal limits. Kidneys: There is right-sided hydronephrosis. There is a 4 mm stone in the right renal collecting system Pelvis: Reproductive Organs: The alignment Ureters: There is an 8 mm stone in the mid to distal right ureter above the M1 right ureterovesical junction. Bladder: Within normal limits. Bowel: Surgical anastomosis is noted in the sigmoid colon. There are uncomplicated diverticula. There is a normal appendix in the lung bases. Changes are noted along the gastric lumen. Mesenteric Lymph Nodes: No enlarged mesenteric lymph nodes. Peritoneum: No ascites or free air, no fluid collection. Vessels: Atherosclerotic changes noted in the abdominal aorta and its branches. Retroperitoneum: Within normal limits. Abdominal Wall: Fat-containing ventral hernias are present. Bones: Degenerative changes are noted in the thoracolumbar spine. CT/CT abdomen pelvis wo con IMPRESSION: There is an 8 mm stone in the mid to distal right ureter contributing to right-sided hydronephrosis. This is new. Additional nonobstructing stone is noted in the right renal collecting system. Impression dictated by: Soren Medeiros M.D.04/23/2024 4:25 PM Dictation Location: [place] [id number] Electronically authenticated by: [id number] Y Date: 04/23/2024 16:25
[2024-04-23] MEDS: ONDANSETRON PF 4 MG/2 ML VIAL IV (14:31)
[2024-04-23] MEDS: HYDROMORPHONE HCL 1 MG/ML CARTRIDGE IVP (16:04)
[2024-04-23 16:07] VITALS: BP 105/52; PULSE 68; TEMP 37.1; O2SAT 95
[2024-04-23 19:32] VITALS: BP 108/71; PULSE 68; O2SAT 95
[2024-04-23] MEDS: HYDROMORPHONE HCL 0.5 MG/0.5 ML SYRINGE IV (21:12)
[2024-04-23 21:21] VITALS: BP 120/67; PULSE 75; TEMP 37.5; O2SAT 95
== END 2024-04-23 21:21 | disposition short-term general hospital (02) ==
PROVIDERS: Physician Assistant; Emergency Provider Emergency Medicine; PCP Family Medicine
DX: N13.6 Pyonephrosis (principal); R50.9 Fever, unspecified; Z87.442 Personal history of urinary calculi
CPT/HCPCS: 36415; 74176; 80053; 81001; 82800; 83605; 85025; 87040; 87086; 87804; 87811; 96365; 96375; 96376; 99285; J0696; J1171; J1885; J2405

== ENCOUNTER 2024-06-22 10:19 | Outpatient (OUT) | payer MEDICARE, SELFPAY ==
--- NOTE | 2024-06-22 10:21 | MM_ITS ---
Patient Name: YAMILET GALAVIZ MR#: [id number] : 1955 Exam Date: 06/22/2024 Ordering Doctor: DR CASEY PAEZ RADIOLOGY REPORT PROCEDURE: MM TOMOSYNTHESIS SCREENING BI COMPARISON: MM TOMOSYNTHESIS SCREENING BI, 06/14/2023. MG MAMM SCREEN 3D ROBERT CAD, 04/21/2022. MG MAMM SCREEN 3D ROBERT CAD, 04/20/2021. MG MAMM ROBERT SCRN W CAD DIG, 01/02/2013. INDICATIONS: Screening Calculator Name NCI Breast Cancer Risk Assessment Tool 5 Year Breast Cancer Risk 3.30% Lifetime Breast Cancer Risk 10.40% Personal Breast Cancer No Personal Ovarian Cancer No Treatments None Family Cancers Mother with breast cancer at age 56; Father with bladder cancer at age 70. LOCATION: [facility] BREAST COMPOSITION: There are scattered areas of fibroglandular density. FINDINGS: DIAGNOSTIC CATEGORY 1--NEGATIVE. LEFT BREAST: No significant suspicious finding. RIGHT BREAST: No significant suspicious finding. RECOMMENDATIONS: ROUTINE MAMMOGRAM AND CLINICAL EVALUATION IN 12 MONTHS. PLEASE NOTE: A NORMAL MAMMOGRAM DOES NOT EXCLUDE THE POSSIBILITY OF BREAST CANCER. A CLINICALLY SUSPICIOUS PALPABLE LUMP SHOULD BE BIOPSIED. Dictated by: Pete iL DO on 06/22/2024 at 14:57 Approved by: Pete Li DO on 06/22/2024 at 14:58
== END 2024-06-22 10:20 | disposition home or self-care (01) ==
LOC: MAMMO 10:19
PROVIDERS: PCP Family Medicine; Visit Provider Family Medicine
DX: Z12.31 Encounter for screening mammogram for malignant neoplasm of breast (principal); Z80.3 Family history of malignant neoplasm of breast; Z80.52 Family history of malignant neoplasm of bladder
CPT/HCPCS: 77063; 77067